=== PATIENT | male | born 1975 | race Caucasian/White ===

== ENCOUNTER 2020-06-21 13:21 | Emergency (ER) | payer MEDICAID, OTHER ==
[~2020-06-21] VITALS: Ht 175.3 cm; Wt 113.4 kg
[2020-06-21 13:23] VITALS: BP 176/101
[2020-06-21] MEDS ORDERED: KETOROLAC TROMETH 60MG/2ML VIAL IM ONE (14:45)
== END 2020-06-21 16:00 | disposition home or self-care (01) ==
LOC: ER 13:21
DX: M48.061 Spinal stenosis, lumbar region without neurogenic claudication (principal); M54.16 Radiculopathy, lumbar region
CPT/HCPCS: 72131; 96372; 99284; J1885

== ENCOUNTER 2020-12-05 14:25 | Emergency (ER) | payer MEDICAID ==
[~2020-12-05] VITALS: Ht 175.3 cm; Wt 136.1 kg
[2020-12-05 14:26] VITALS: BP 175/78
[2020-12-05 18:49] LABS: Basophils # (auto) 0.1 10 ^3/uL (0-0.2); Eosinophils # (auto) 0.1 10 ^3/uL (0-0.8); Eosinophils % (auto) 2.5 % (0.0-7.0); Hematocrit 41.9 % (41.0-53.0); Hemoglobin 14.8 g/dL (13.5-17.5); Lymphocytes # (auto) 1.8 10 ^3/uL (0.4-5.4); Lymphocytes % (auto) 32.3 % (10.0-50.0); Mean Corpuscular Hgb Conc. 35.4 g/dL (32.0-36.0); Mean Corpuscular Volume 93.2 fL (80.0-100.0); Monocytes # (auto) 0.6 10 ^3/uL (0-1.3); Neutrophils # (auto) 2.9 10 ^3/uL (1.6-8.6); Neutrophils % (auto) 53.2 % (37.0-80.0); Nucleated Red Blood Cells % 0.1 %; Red Blood Cells 4.49 10^6/uL (4.5-5.90); Red Cell Distribution Width 13.5 % (11.8-14.3); White Blood Cell 5.5 10^3/uL (4.4-10.8)
[2020-12-05 19:08] LABS: Albumin 3.4 g/dL (3.4-5.0); Calcium 8.9 mg/dL (8.5-10.1); Potassium 4.2 mmol/L (3.5-5.1)
[2020-12-05 19:11] LABS: BUN/Creatinine Ratio 14.3; Bilirubin, Total 0.5 mg/dL (0.2-1.0); CRP High Sensitivity 0.74 mg/dL (< 0.3); Total Protein 7.4 g/dL (6.4-8.2)
== END 2020-12-05 23:15 | disposition left against medical advice (07) ==
LOC: ER 14:25
DX: R22.43 Localized swelling, mass and lump, lower limb, bilateral (principal); I25.2 Old myocardial infarction; E16.2 Hypoglycemia, unspecified; F17.210 Nicotine dependence, cigarettes, uncomplicated; Z86.19 Personal history of other infectious and parasitic diseases; Z20.822 Contact with and (suspected) exposure to COVID-19; Z90.49 Acquired absence of other specified parts of digestive tract; Z86.73 Personal history of transient ischemic attack (TIA), and cerebral infarction without residual deficits
CPT/HCPCS: 36415; 71045; 80053; 82728; 85025; 85379; 86141; 87426; 93005; 93970

== ENCOUNTER 2021-12-08 22:32 | Inpatient (IN) | payer MEDICAID ==
[~2021-12-08] VITALS: Ht 378.5 cm; Wt 153.6 kg
[2021-12-08 23:57] LABS: Basophils # (auto) 0.1 10 ^3/uL (0-0.2); Basophils % (auto) 0.5 % (0.0-2.0); Eosinophils # (auto) 0.1 10 ^3/uL (0-0.8); Eosinophils % (auto) 1.2 % (0.0-7.0); Hemoglobin 16.3 g/dL (13.5-17.5); Lymphocytes # (auto) 2.8 10 ^3/uL (0.4-5.4); Lymphocytes % (auto) 27.3 % (10.0-50.0); Mean Corpuscular Hemoglobin 31.4 pg (28.0-32.0); Mean Corpuscular Hgb Conc. 33.4 g/dL (32.0-36.0); Monocytes # (auto) 0.8 10 ^3/uL (0-1.3); Monocytes % (auto) 7.8 % (0.0-12.0); Neutrophils # (auto) 6.6 10 ^3/uL (1.6-8.6); Neutrophils % (auto) 63.2 % (37.0-80.0); Nucleated Red Blood Cells % 0.3 %; Red Blood Cells 5.21 10^6/uL (4.5-5.90); Red Cell Distribution Width 13.7 % (11.8-14.3); White Blood Cell 10.4 10^3/uL (4.4-10.8)
[2021-12-09 00:21] LABS: Albumin 4.5 g/dL (3.4-5.0); Calcium 9.2 mg/dL (8.5-10.1); Potassium 4.2 mmol/L (3.5-5.1)
[2021-12-09 00:27] LABS: Bilirubin, Total 0.9 mg/dL (0.2-1.0)
[2021-12-09] MEDS ORDERED: OXYCODONE W/ ACETAMINOPHEN 5/325MG TABLET PO ONE (03:00)
[2021-12-09] MEDS ORDERED: hydrALAZINE HCL 20 MG/ML VL IV PRN (08:00)
[2021-12-09] MEDS ORDERED: ONDANSETRON HCL 4 MG/2 ML VIAL IV PRN ×2 (08:00)
[2021-12-09] MEDS ORDERED: TEMAZEPAM 15 MG CAP PO PRN (08:00)
[2021-12-09] MEDS ORDERED: MORPHINE SULFATE INJ 2 MG/ml SYRG IV PRN ×2 (08:00)
[2021-12-09] MEDS ORDERED: SODIUM CHLORIDE 0.9% 1,000 ML IV ONE (08:00)
[2021-12-09] MEDS ORDERED: ACETAMINOPHEN 325 MG TAB PO PRN (08:00)
[2021-12-09] MEDS ORDERED: DOCUSATE SOD 100 MG CAP PO PRN (08:00)
[2021-12-09] MEDS ORDERED: NITROGLYCERIN 0.4 MG SL TAB SL PRN (08:00)
[2021-12-09] MEDS ORDERED: METO25TA36 PO (10:06)
[2021-12-09] MEDS ORDERED: SPIR50TA5 PO (10:07)
[2021-12-09] MEDS ORDERED: METF-372 PO (10:07)
[2021-12-09] MEDS ORDERED: ATOR10TA52 PO (10:10)
[2021-12-09] MEDS ORDERED: CHLO100T4 PO (10:10)
[2021-12-09] MEDS ORDERED: SEMA3TAB PO (10:10)
[2021-12-09] MEDS ORDERED: APIX2.5T PO (10:10)
[2021-12-09] MEDS ORDERED: DEXTROSE (50%) 50ML SYRG IV ONE (10:30)
[2021-12-09] MEDS: ENOXAPARIN SOD 40 MG/0.4 ML SYRINGE SC SCH (10:36)
[2021-12-09] MEDS: HYDROcodone-ACET 5/325MG TAB PO PRN (10:37)
[2021-12-09] MEDS ORDERED: METOPROLOL SUCCINATE 25 MG PO SCH (10:38)
[2021-12-09] MEDS ORDERED: ATORVASTATIN CALCIUM 10 MG PO SCH (10:38)
[2021-12-09 10:50] LABS: Urine Bacteria NONE SEEN /hpf (None Seen); Urine Blood Negative /uL (Negative); Urine Hyaline Cast FEW /lpf (0 - 2); Urine Mucus FEW (None Seen); Urine Specific Gravity 1.022 (1.001-1.035); Urine WBC 4 /hpf (0 - 3)
[2021-12-09] MEDS ORDERED: ACCU-CHEK COMFORT CURVE STRIP VI ONE (11:30)
[2021-12-09] MEDS ORDERED: InsuLIN REG 1unit/0.01ml Soln (100units/ml) SC ONE (11:30)
[2021-12-09] MEDS ORDERED: METOPROLOL SUCCINATE XL 50 MG TAB PO SCH (11:45)
[2021-12-09] MEDS: ATORVASTATIN 20 MG TAB PO SCH (11:58)
[2021-12-09] MEDS: chlorproMAZINE HCL 25 MG TAB PO SCH (12:04)
[2021-12-09 18:58] LABS: Amphetamine Screen, Urine NEGATIVE (NEGATIVE); Barbiturate Scree,Urine NEGATIVE (NEGATIVE); Benzodiazephine Screen, Urine NEGATIVE (NEGATIVE); Cannabinoid Screen, Urine NEGATIVE (NEGATIVE); Cocaine Screen, Urine NEGATIVE (NEGATIVE); Opiate Scree,Urine NEGATIVE (NEGATIVE); Phencyclidine Screen, Urine NEGATIVE (NEGATIVE)
[2021-12-09 22:00] VITALS: BP 115/63
[2021-12-09] MEDS: amLODIPine BESYLATE 5 MG TAB PO SCH (22:14)
[2021-12-09] MEDS: metFORMIN HYDROCHLORIDE 500 MG TAB PO SCH (22:15)
[2021-12-10 05:00] VITALS: BP 135/78
[2021-12-10] MEDS: HYDROcodone-ACET 5/325MG TAB PO PRN ×3 (05:05→20:29)
[2021-12-10 05:30] LABS: Basophils # (auto) 0 10 ^3/uL (0-0.2); Basophils % (auto) 0.7 % (0.0-2.0); Eosinophils # (auto) 0.1 10 ^3/uL (0-0.8); Eosinophils % (auto) 2.3 % (0.0-7.0); Hematocrit 44.3 % (41.0-53.0); Hemoglobin 15.7 g/dL (13.5-17.5); Lymphocytes # (auto) 1.7 10 ^3/uL (0.4-5.4); Mean Corpuscular Hemoglobin 33.1 pg (28.0-32.0); Mean Corpuscular Hgb Conc. 35.5 g/dL (32.0-36.0); Mean Corpuscular Volume 93.3 fL (80.0-100.0); Monocytes # (auto) 0.6 10 ^3/uL (0-1.3); Monocytes % (auto) 9.2 % (0.0-12.0); Neutrophils # (auto) 3.7 10 ^3/uL (1.6-8.6); Neutrophils % (auto) 59.8 % (37.0-80.0); Nucleated Red Blood Cells % 0.3 %; Red Blood Cells 4.75 10^6/uL (4.5-5.90); Red Cell Distribution Width 13.7 % (11.8-14.3); White Blood Cell 6.2 10^3/uL (4.4-10.8)
[2021-12-10 05:50] LABS: Potassium 4.1 mmol/L (3.5-5.1)
[2021-12-10 05:57] LABS: Albumin 3.9 g/dL (3.4-5.0); BUN/Creatinine Ratio 11.6; Bilirubin, Total 0.8 mg/dL (0.2-1.0); Calcium 8.8 mg/dL (8.5-10.1); Total Protein 7.4 g/dL (6.4-8.2)
[2021-12-10 09:00] VITALS: BP 128/93
[2021-12-10] MEDS: metFORMIN HYDROCHLORIDE 500 MG TAB PO SCH ×2 (10:43→20:29)
[2021-12-10] MEDS: amLODIPine BESYLATE 5 MG TAB PO SCH (10:43)
[2021-12-10] MEDS: ATORVASTATIN 20 MG TAB PO SCH (10:45)
[2021-12-10] MEDS: METOPROLOL SUCCINATE XL 50 MG TAB PO SCH (10:45)
[2021-12-10] MEDS: LISINOPRIL 20 MG TAB PO SCH (10:46)
[2021-12-10] MEDS: ENOXAPARIN SOD 40 MG/0.4 ML SYRINGE SC SCH (10:49)
[2021-12-10] MEDS: chlorproMAZINE HCL 25 MG TAB PO SCH (10:57)
[2021-12-10 13:00] VITALS: BP 110/64
[2021-12-10 17:00] VITALS: BP 90/47
[2021-12-10 22:00] VITALS: BP 93/46
[2021-12-11 05:00] VITALS: BP 108/69
[2021-12-11] MEDS: HYDROcodone-ACET 5/325MG TAB PO PRN ×3 (06:14→14:28)
[2021-12-11 08:47] VITALS: BP 106/76
[2021-12-11] MEDS: metFORMIN HYDROCHLORIDE 500 MG TAB PO SCH (09:50)
[2021-12-11] MEDS: LISINOPRIL 20 MG TAB PO SCH (09:50)
[2021-12-11] MEDS: amLODIPine BESYLATE 5 MG TAB PO SCH (09:51)
[2021-12-11] MEDS: ENOXAPARIN SOD 40 MG/0.4 ML SYRINGE SC SCH (09:51)
[2021-12-11] MEDS: METOPROLOL SUCCINATE XL 50 MG TAB PO SCH (09:52)
[2021-12-11] MEDS: ATORVASTATIN 20 MG TAB PO SCH (09:52)
[2021-12-11] MEDS: chlorproMAZINE HCL 25 MG TAB PO SCH (09:54)
[2021-12-11] MEDS ORDERED: LISI20TA28 PO (13:21)
[2021-12-11] MEDS ORDERED: AML5T PO (13:21)
[2021-12-11] MEDS ORDERED: ATOR20TA50 PO (13:21)
[2021-12-11] MEDS ORDERED: HYDR-4902 PO (13:23)
[2021-12-11] MEDS ORDERED: BACL20TA PO (13:38)
[2021-12-11 17:16] VITALS: BP 123/87
== END 2021-12-11 17:00 | disposition home health service (06) | DRG 199 ==
LOC: EDUNIT# 22:32 → ER 22:32 → EDBD 22:32 → TELE 12-09 07:54 → TELE-CENTR 12-09 18:56
PROVIDERS: ADMIT Nurse Practitioner; ATTEND Internal Medicine
DX: I16.1 Hypertensive emergency (principal); E11.65 Type 2 diabetes mellitus with hyperglycemia; F20.9 Schizophrenia, unspecified; M54.50 Low back pain, unspecified; R51.9 Headache, unspecified; Z20.822 Contact with and (suspected) exposure to COVID-19; E66.01 Morbid (severe) obesity due to excess calories; Z98.1 Arthrodesis status; E11.9 Type 2 diabetes mellitus without complications; Z68.1 Body mass index [BMI] 19.9 or less, adult; Z79.01 Long term (current) use of anticoagulants; Z79.899 Other long term (current) drug therapy; Z86.711 Personal history of pulmonary embolism; Z86.718 Personal history of other venous thrombosis and embolism; Z88.2 Allergy status to sulfonamides; Z90.49 Acquired absence of other specified parts of digestive tract; Z71.3 Dietary counseling and surveillance; Z86.19 Personal history of other infectious and parasitic diseases
CPT/HCPCS: 36415; 70450; 71045; 71046; 72128; 80053; 80061; 80307; 81001; 83036; 83880; 84484; 85025; 85379; 93005; 93306; 96360; 96372; G0378; Q0161

== ENCOUNTER 2021-12-12 03:11 | Emergency (ER) | payer MEDICAID ==
[~2021-12-12] VITALS: Ht 185.4 cm; Wt 147.7 kg
[~2021-12-12 03:11] MED LIST: AML5T PO; APIX2.5T PO; ATOR10TA52 PO; ATOR20TA50 PO; BACL20TA PO; CHLO100T4 PO; HYDR-4902 PO; LISI20TA28 PO; METF-372 PO; METO25TA36 PO; SEMA3TAB PO; SPIR50TA5 PO
[2021-12-12 04:28] LABS: Basophils # (auto) 0.1 10 ^3/uL (0-0.2); Basophils % (auto) 0.6 % (0.0-2.0); Eosinophils # (auto) 0.1 10 ^3/uL (0-0.8); Eosinophils % (auto) 0.8 % (0.0-7.0); Hematocrit 46.8 % (41.0-53.0); Hemoglobin 15.9 g/dL (13.5-17.5); Lymphocytes # (auto) 1.3 10 ^3/uL (0.4-5.4); Lymphocytes % (auto) 17.1 % (10.0-50.0); Mean Corpuscular Hemoglobin 32.3 pg (28.0-32.0); Mean Corpuscular Hgb Conc. 33.8 g/dL (32.0-36.0); Mean Corpuscular Volume 95.5 fL (80.0-100.0); Monocytes # (auto) 0.7 10 ^3/uL (0-1.3); Monocytes % (auto) 8.4 % (0.0-12.0); Neutrophils # (auto) 5.8 10 ^3/uL (1.6-8.6); Neutrophils % (auto) 73.1 % (37.0-80.0); Nucleated Red Blood Cells % 0.1 %; Red Blood Cells 4.91 10^6/uL (4.5-5.90); Red Cell Distribution Width 13.8 % (11.8-14.3); White Blood Cell 7.9 10^3/uL (4.4-10.8)
[2021-12-12 04:57] LABS: Albumin 4.3 g/dL (3.4-5.0); Calcium 8.8 mg/dL (8.5-10.1); Potassium 4.2 mmol/L (3.5-5.1)
[2021-12-12 04:59] LABS: Total Protein 7.4 g/dL (6.4-8.2)
[2021-12-12] MEDS ORDERED: MORPHINE SULFATE INJ 2 MG/ml SYRG IV ONE (07:30)
[2021-12-12] MEDS ORDERED: ONDANSETRON HCL 4 MG/2 ML VIAL IV ONE (07:30)
[2021-12-12 12:00] VITALS: BP 105/64
== END 2021-12-12 13:38 | disposition home or self-care (01) ==
LOC: ER 03:11 → EDBD 03:11 → ER 13:38
DX: R07.89 Other chest pain (principal); I10 Essential (primary) hypertension; E11.65 Type 2 diabetes mellitus with hyperglycemia; E66.01 Morbid (severe) obesity due to excess calories; Z68.41 Body mass index [BMI] 40.0-44.9, adult; Z86.711 Personal history of pulmonary embolism; Z90.49 Acquired absence of other specified parts of digestive tract; Z87.891 Personal history of nicotine dependence; Z79.899 Other long term (current) drug therapy; Z88.2 Allergy status to sulfonamides
CPT/HCPCS: 36415; 71045; 80053; 83735; 84443; 84484; 85025; 85379; 93005; 96374; 96375; 99285; J2270; J2405

== ENCOUNTER 2022-10-22 15:54 | Emergency (ER) | payer MEDICAID ==
[~2022-10-22] VITALS: Ht 175.3 cm; Wt 154.6 kg
[~2022-10-22 15:54] MED LIST changes: -CHLO100T4 PO; +CHLO100T8 PO; -LISI20TA28 PO; +LISI20TA56 PO; -SEMA3TAB PO; +SEMA3TAB2 PO
[2022-10-22 16:31] VITALS: BP 158/88
[2022-10-22] MEDS ORDERED: IBUP-1456 PO (17:06)
[2022-10-22] MEDS ORDERED: METH4PAK PO (17:06)
== END 2022-10-22 17:22 | disposition home or self-care (01) ==
LOC: ER 15:54
DX: G56.01 Carpal tunnel syndrome, right upper limb (principal); E11.9 Type 2 diabetes mellitus without complications; I10 Essential (primary) hypertension; Z90.49 Acquired absence of other specified parts of digestive tract; Z87.891 Personal history of nicotine dependence; X58.XXXA Exposure to other specified factors, initial encounter; Y93.89 Activity, other specified; Y92.89 Other specified places as the place of occurrence of the external cause; Y99.8 Other external cause status
CPT/HCPCS: 29125; 73130

== ENCOUNTER 2023-01-04 20:36 | Emergency (ER) | payer MEDICAID ==
[~2023-01-04] VITALS: Ht 175.3 cm; Wt 149.1 kg
[~2023-01-04 20:36] MED LIST changes: +IBUP-1456 PO; +METH4PAK PO
[2023-01-04 22:35] LABS: Basophils # (auto) 0 10 ^3/uL (0-0.2); Basophils % (auto) 0.5 % (0.0-2.0); Eosinophils # (auto) 0.1 10 ^3/uL (0-0.8); Eosinophils % (auto) 1.6 % (0.0-7.0); Hematocrit 41.1 % (41.0-53.0); Hemoglobin 14.2 g/dL (13.5-17.5); Lymphocytes # (auto) 2.3 10 ^3/uL (0.4-5.4); Lymphocytes % (auto) 26.3 % (10.0-50.0); Mean Corpuscular Hemoglobin 33.4 pg (28.0-32.0); Mean Corpuscular Hgb Conc. 34.5 g/dL (32.0-36.0); Monocytes # (auto) 0.8 10 ^3/uL (0-1.3); Monocytes % (auto) 9.8 % (0.0-12.0); Neutrophils # (auto) 5.4 10 ^3/uL (1.6-8.6); Neutrophils % (auto) 61.8 % (37.0-80.0); Nucleated Red Blood Cells % 0.1 %; Red Blood Cells 4.23 10^6/uL (4.5-5.90); Red Cell Distribution Width 14.5 % (11.8-14.3); White Blood Cell 8.7 10^3/uL (4.4-10.8)
[2023-01-04 22:42] LABS: Alanine Aminotransferase 72 U/L (7-40); Albumin 4.8 g/dL (3.2-4.8); Alkaline Phosphatase 71 U/L (46-116); Anion Gap 5.2 (5-15); Aspartate Aminotransferase 36 U/L (13-40); BUN/Creatinine Ratio 10.3 (10.0-20.0); Bilirubin, Total 0.9 mg/dL (0.2-1.0); Blood Urea Nitrogen 14 mg/dL (9-23); Calcium 9.6 mg/dL (8.7-10.4); Carbon Dioxide 27.8 mmol/L (20-30); Chloride 105 mmol/L (98-107); Glucose 132 mg/dL (74-106); Potassium 5.1 mmol/L (3.5-5.1); Sodium 138 mmol/L (136-145); Total Protein 7.3 g/dL (5.7-8.2)
[2023-01-04] MEDS ORDERED: KETOROLAC TROMETH 30 MG/ML 1ML VIAL IV ONE (23:00)
[2023-01-04] MEDS ORDERED: ceFAZolin 2 GM/D5W100ml 100 ML IV ONE (23:00)
[2023-01-04] MEDS ORDERED: CLIN300C70 PO (23:40)
[2023-01-05 01:35] VITALS: BP 135/79; PULSE 78; RESP 18; TEMP 98; O2SAT 97
[2023-01-05] MEDS ORDERED: cefTRIAXone SOD 1,000 MG VL IM ONE (01:45)
== END 2023-01-05 06:31 | disposition home or self-care (01) ==
LOC: ER 20:36
DX: L03.113 Cellulitis of right upper limb (principal); I10 Essential (primary) hypertension; E11.9 Type 2 diabetes mellitus without complications; I26.99 Other pulmonary embolism without acute cor pulmonale; Z90.49 Acquired absence of other specified parts of digestive tract; Z87.891 Personal history of nicotine dependence; Z79.1 Long term (current) use of non-steroidal anti-inflammatories (NSAID); Z79.899 Other long term (current) drug therapy
CPT/HCPCS: 36415; 73080; 80053; 85025; 93971; 96372; 96374

== ENCOUNTER 2023-06-01 23:40 | Emergency (ER) | payer MEDICAID ==
[~2023-06-01] VITALS: Ht 175.3 cm; Wt 162.7 kg
[~2023-06-01 23:40] MED LIST changes: +CLIN300C70 PO
[2023-06-02 00:50] LABS: Basophils # (auto) 0 10 ^3/uL (0-0.2); Basophils % (auto) 0.7 % (0.0-2.0); Eosinophils # (auto) 0.1 10 ^3/uL (0-0.8); Eosinophils % (auto) 1.2 % (0.0-7.0); Hematocrit 42.2 % (41.0-53.0); Hemoglobin 14.2 g/dL (13.5-17.5); Lymphocytes # (auto) 1.4 10 ^3/uL (0.4-5.4); Lymphocytes % (auto) 24.2 % (10.0-50.0); Mean Corpuscular Hgb Conc. 33.7 g/dL (32.0-36.0); Mean Corpuscular Volume 97.8 fL (80.0-100.0); Monocytes # (auto) 0.7 10 ^3/uL (0-1.3); Monocytes % (auto) 11.7 % (0.0-12.0); Neutrophils # (auto) 3.6 10 ^3/uL (1.6-8.6); Neutrophils % (auto) 62.2 % (37.0-80.0); Red Blood Cells 4.32 10^6/uL (4.5-5.90); Red Cell Distribution Width 13.5 % (11.8-14.3); White Blood Cell 5.8 10^3/uL (4.4-10.8)
[2023-06-02 01:01] LABS: Alanine Aminotransferase 144 U/L (7-40); Albumin 4.2 g/dL (3.2-4.8); Alkaline Phosphatase 82 U/L (46-116); Anion Gap 6 (5-15); Aspartate Aminotransferase 143 U/L (13-40); BUN/Creatinine Ratio 11.9 (10.0-20.0); Blood Urea Nitrogen 15 mg/dL (9-23); Calcium 9.4 mg/dL (8.7-10.4); Carbon Dioxide 26 mmol/L (20-30); Chloride 108 mmol/L (98-107); Glucose 156 mg/dL (74-106); Potassium 3.9 mmol/L (3.5-5.1); Sodium 140 mmol/L (136-145)
[2023-06-02 01:02] LABS: Bilirubin, Total 0.8 mg/dL (0.2-1.0); Total Protein 6.6 g/dL (5.7-8.2)
[2023-06-02] MEDS ORDERED: ALBUAER3 IN (03:23)
[2023-06-02] MEDS ORDERED: DOXY-286 PO (03:23)
[2023-06-02] MEDS ORDERED: DEX4T PO (03:23)
[2023-06-02 04:44] VITALS: BP 121/55; PULSE 81; RESP 20; TEMP 97.1; O2SAT 97
[2023-06-02] MEDS ORDERED: IOHEXOL 350 MG/ML 100ML IJ ONE (05:28)
== END 2023-06-02 03:24 | disposition home or self-care (01) ==
LOC: ER 23:40
DX: J45.909 Unspecified asthma, uncomplicated (principal); R07.89 Other chest pain; I10 Essential (primary) hypertension; E11.9 Type 2 diabetes mellitus without complications; Z90.49 Acquired absence of other specified parts of digestive tract; Z87.891 Personal history of nicotine dependence
CPT/HCPCS: 36415; 71045; 71275; 80053; 83605; 83880; 84484; 85025; 85379; 87040; 99285; Q9967

== ENCOUNTER 2024-11-12 07:46 | Inpatient (IN) | payer MEDICAID ==
[~2024-11-12] VITALS: Ht 175.3 cm; Wt 147.5 kg
[~2024-11-12 07:46] MED LIST changes: +ALBUAER3 IN; +CHLO100T12 PO; -CHLO100T8 PO; +CLIN1CAP70 PO; -CLIN300C70 PO; +DEX4T PO; +DOXY-286 PO
--- NOTE | 2024-11-12 08:15 | ED.PDOC ---
History of Present Illness HPI Comments 49-year-old male presents to the ER with a prior medical history of asthma, diabetes, hypertension, PEx4, 8 years ago(currently on blood thinners), high lipids, stage III cirrhosis: Surgical history of cholecystectomy, laminectomy, right knee surgery and the chief complaint of lower extremity. Patient reports on having swelling on the top right foot for 2 weeks with the pain worsening felt day and being constant. Patient states on having no trauma or fall on the extremity. Denies chills, fever, N/V/D, SOB, CP. No other associated symptoms, modifiers, recent injuries or sick contacts present at this time. Chief Complaint: Lower Extremity Time Seen by MD: 08:05 Primary Care Provider: FLAKITO PEREIRA Reviewed Notes: Nurses Notes, Medications, Allergies Allergies: Uncoded Allergies: SULFA (Allergy, Unknown, 06/21/20) Home Meds Active Scripts Albuterol Sulfate (VENTOLIN MDI) 90 Mcg Ih, 180 MCG IN Q6HP PRN for 20 Days, #1 MCG Prov:BETSEY JESUS S DO 06/02/23 Doxycycline Hyclate (DOXYCYCLINE HYCLATE) 100 Mg Tab, 1 TAB PO BID for 10 Days, #20 TAB Prov:BETSEY JESUS DO 06/02/23 Dexamethasone (Decadron) 4 Mg Tb, 8 MG PO DAILY for 9 Days, #18 TAB Prov:BETSEY JESUS S DO 06/02/23 Clindamycin Hcl (Clindamycin Hcl) 300 Mg Cap, 1 CAP PO TID for 10 Days, #30 CAP Prov:CORY ÁLVAREZ 01/04/23 Methylprednisolone (Medrol Dosepak) 4 Mg Dario, 4 MG PO UD, #21 TAB UAD Prov:VON MITCHELL 10/22/22 Ibuprofen (Ibuprofen) 800 Mg Tab, 1 TAB PO TID, #30 TAB Prov:VON MITCHELL 10/22/22 Baclofen (Baclofen) 20 Mg Tab, 1 TAB PO TID for 5 Days, #15 TAB 3 Refills Prov:GLORIA PALMA NP 12/11/21 Hydrocodone-Acetaminophen (Hydrocodone Bitartrate/AC 5-325 mg) 1 Tab Tab, 1 TAB PO Q6HP PRN for 7 Days, #28 TAB Prov:GLORIA PALMA NP 12/11/21 Lisinopril (Lisinopril) 20 Mg Tab, 20 MG PO DAILY for 30 Days, #30 TAB Prov:GLORIA PALMA [employer]ANDEM [employer]PER[employer] 12/11/21 Atorvastatin Calcium (ATORVASTATIN CALCIUM) 20 Mg Tab, 10 MG PO DAILY for 30 Days, #15 TAB Prov:GLORIA PALMA TANDEM M[employer] OPERATOR 12/11/21 Amlodipine Besylate (NORVASC TABLET) 5 Mg Tb, 5 MG PO DAILY for 30 Days, #30 TAB Prov:GLORIA PALMA TANDEM M[employer] OPERATOR 12/11/21 Reported Medications Chlorpromazine Hcl (Chlorpromazine Hcl) 100 Mg Tab, 100 MG PO, TAB 12/09/21 Apixaban Base (ELIQUIS) 2.5 Mg Tab, 2.5 MG PO BID, TAB 12/09/21 Semaglutide (Rybelsus) 3 Mg Tab, 3 MG PO, TAB 12/09/21 Atorvastatin Calcium (ATORVASTATIN CALCIUM) 10 Mg Tab, 1 TAB PO DAILY, #30 TAB 5 Refills 12/09/21 Metformin Hydrochloride (Metformin Hcl) 1,000 Mg Tab, 1 TAB PO BID, #180 TAB 3 Refills 12/09/21 Spironolactone (Spironolactone) 50 Mg Tab, 1 TAB PO DAILY, #30 TAB 5 Refills 12/09/21 Metoprolol Succinate (Toprol Xl) 25 Mg Tab, 1 TAB PO DAILY, #30 TAB 5 Refills 12/09/21 Information Source: Patient Mode of Arrival: Ambulatory Severity: Moderate Timing: Weeks Duration: Since onset Prehospital treatment: None Past Medical History PAST MEDICAL HISTORY: Asthma, DM, High Lipids, HTN, Liver (Stage III liver cirrhosis), PE (X4, 8 years ago and currently on blood thinners) Surgical History: Cholecystectomy Surgical History (Other): Laminectomy, right knee surgery Family History Family History: Reviewed,noncontributory to illness, Unknown Social History Smoker: Non-Smoker, Quit Greater Than 1 Year Alcohol: Denies ETOH Use, Sober Drugs: Denies Drug Use Lives In: Home Constitutional: denies: chills, diaphoresis, fatigue, fever, malaise, sweats, weakness, others EENTM: denies: blurred vision, double vision, ear bleeding, ear discharge, ear drainage, ear pain, ear ringing, eye pain, eye redness, hearing loss, mouth pain, mouth swelling, nasal discharge, nose bleeding, nose congestion, nose pain, photophobia, tearing, throat pain, throat swelling, voice changes, others Respiratory: denies: cough, hemoptysis, orthopnea, SOB at rest, shortness of breath, SOB with excertion, stridor, wheezing, others Cardiovascular: reports: edema (3+ pitting edema, mild redness, hyperpigmentation, asymmetrically larger than the left); denies: chest pain, dizzy spells, diaphoresis, Dyspnea on exertion, irregular heart beat, left arm pain, lightheadedness, palpitations, PND, syncope, others Gastrointestinal: denies: abdomen distended, abdominal pain, blood streaked bowels, constipated, diarrhea, dysphagia, difficulty swallowing, hematemesis, melena, nausea, poor appetite, poor fluid intake, rectal bleeding, rectal pain, vomiting, others Genitourinary: denies: burning, dysuria, flank pain, frequency, hematuria, incontinence, penile discharge, penile sore, pain, testicle pain, testicle swelling, urgency, others Neurological: denies: dizziness, fainting, headache, left sided numbness, left sided weakness, numbness, paresthesia, pre-existing deficit, right sided numbness, right sided weakness, seizure, speech problems, tingling, tremors, weakness, others Musculoskeletal: denies: back pain, gout, joint pain, joint swelling, muscle pain, muscle stiffness, neck pain, others Integumetry: denies: bruises, change in color, change in hair/nails, dryness, laceration, lesions, lumps, rash, wounds, others Allergic/Immunocompromised: denies: Difficulty Healing, Frequent Infections, Hives, Itching, others Hematologic/Lymphatic: denies: anemia, blood clots, easy bleeding, easy bruising, swollen glands, others Endocrine: denies: excessive hunger, excessive sweating, excessive thirst, excessive urination, flushing, intolerance to cold, intolerance to heat, unexplained weight gain, unexplained weight loss, others Psychiatric: denies: anxiety, bipolar disorder, depression, hopeless, panic disorder, schizophrenia, sleepless, suicidal, others All Other Systems: Reviewed and Negative Physical Exam General Appearance: No Apparent Distress, Normal HEENT: Normal ENT Inspection, Pharynx Normal, TMs Normal Neck: Full Range of Motion, Non-Tender, Normal, Normal Inspection Respiratory: Chest Non-Tender, Lungs Clear, No Accessory Muscle Use, No Respiratory Distress, Normal Breath Sounds Cardiovascular: No Edema, No JVD, No Murmur, No Gallop, Normal Peripheral Pulses, Regular Rate/Rhythm Breast Exam: Deferred Gastrointestinal: No Organomegaly, Non Tender, No Pulsatile Mass, Normal Bowel Sounds, Soft Genitalia: Deferred Pelvic: Deferred Rectal: Deferred Extremities: Leg edema (3+ pitting edema, mild redness, hyperpigmentation, asymmetrically larger than the left), Normal capillary refill, Normal inspection, Normal range of motion, Non-tender, No pedal edema Musculoskeletal : Apperance: Normal Neurologic: Alert, lead oxide mill tender II-XII nml as Tested, No Motor Deficits, Normal Affect, Normal Mood, No Sensory Deficits Cerebellar Function: Normal Reflexes: Normal Skin: Dry, Normal Color, Warm Lymphatic: No Adenopathy Was a procedure done? Was a procedure done?: No Differential Dx Considerations may include: DVT, post thrombotic syndrome, sprain, strain, venous insufficiency, cellulitis X-Ray, Labs, Meds, VS Vital Signs Date Time Temp Pulse Resp B/P (MAP) Pulse Ox O2 Delivery O2 Flow Rate FiO2 11/12/24 10:06 86 20 94 Room Air* 0 21 11/12/24 10:03 98.3 86 20 127/75 (92) 94 98.3 11/12/24 08:27 88 17 97 Room Air 11/12/24 08:27 98.7 88 17 129/86 (100) 97 98.7 11/12/24 07:54 97.5 105 16 159/74 (102) 98 97.5 11/12/24 07:54 97.5 105 16 159/74 (102) 98 97.5 Lab Test 11/12/24 08:22 Range/Units White Blood Count 3.9 L 4.4-10.8 10^3/uL Red Blood Count 4.00 L 4.5-5.90 10^6/uL Hemoglobin 12.0 L 13.5-17.5 g/dL Hematocrit 35.2 L 41.0-53.0 % Mean Corpuscular Volume 87.9 80.0-100.0 fL Mean Corpuscular Hemoglobin 30.1 28.0-32.0 pg Mean Corpuscular Hemoglobin Concent 34.3 32.0-36.0 g/dL Red Cell Distribution Width 16.2 H 11.8-14.3 % Platelet Count 140 140-450 10^3/uL Mean Platelet Volume 8.2 6.9-10.8 fL Neutrophils (%) (Auto) 60.0 37.0-80.0 % Lymphocytes (%) (Auto) 26.4 10.0-50.0 % Monocytes (%) (Auto) 10.2 0.0-12.0 % Eosinophils (%) (Auto) 2.4 0.0-7.0 % Basophils (%) (Auto) 1.0 0.0-2.0 % Neutrophils # (Auto) 2.4 1.6-8.6 10 ^3/uL Lymphocytes # (Auto) 1.0 0.4-5.4 10 ^3/uL Monocytes # (Auto) 0.4 0-1.3 10 ^3/uL Eosinophils # (Auto) 0.1 0-0.8 10 ^3/uL Basophils # (Auto) 0 0-0.2 10 ^3/uL Nucleated Red Blood Cells 0.1 % Sodium Level 138 136-145 mmol/L Potassium Level 4.4 3.5-5.1 mmol/L Chloride Level 104 98-107 mmol/L Carbon Dioxide Level 25 20-31 mmol/L Anion Gap 9 5-15 Blood Urea Nitrogen 15 9-23 mg/dL Creatinine 1.22 0.700-1.30 mg/dL Glomerular Filtration Rate Calc 72 >90 mL/min BUN/Creatinine Ratio 12.3 10.0-20.0 Serum Glucose 221 H 74-106 mg/dL Calcium Level 9.7 8.7-10.4 mg/dL Time of 1ST Reevaluation: 08:35 Reevaluation 1ST: Unchanged Time of 2ND Reevaluation: 10:26 Reevaluation 2ND: Unchanged Patient Education/Counseling: Diagnosis, Treatment, Prognosis, Need For Follow Up Family Education/Counseling: No Family Present Comments pt has a recurrentl DVT due to being off eliquis. i consulted IR, Dr Pelaez, and will admit the pt while starting him on heparin SEPSIS Sepsis Screen Date sepsis recognized/suspect: Nov 12, 2024 Time Sepsis recognized/suspect: 0746 Recent Procedure: No On Antibiotic Therapy: No Respiratory Rate >20: No Heart Rate >90: No Temp<36 C (96.8 F) or >38.3 C: No SBP <90 or MAP <65 mmHG: No New Acute Mental Status Change: No Is the patient on CPAP, BIPAP,: No Physician Orders Rt Lower Dvt (11/12/24 08:08) * Radiologist Consult (11/12/24 09:23) Platelet Monitoring (11/12/24 10:24) Vte Protocol Initiated (11/12/24 10:24) Heparin Per Standardized Proce (11/12/24 10:24) Discontinue All Im Injections (11/12/24 10:24) Heparin Sodium (Porcine) (11/12/24 10:30) Heparin Drip/D5w 100units/Ml (11/12/24 10:30) Vital Signs Date Time Temp Pulse Resp B/P (MAP) Pulse Ox O2 Delivery O2 Flow Rate FiO2 11/12/24 10:06 86 20 94 Room Air* 0 21 11/12/24 10:03 98.3 86 20 127/75 (92) 94 98.3 11/12/24 08:27 88 17 97 Room Air 11/12/24 08:27 98.7 88 17 129/86 (100) 97 98.7 11/12/24 07:54 97.5 105 16 159/74 (102) 98 97.5 11/12/24 07:54 97.5 105 16 159/74 (102) 98 97.5 Laboratory Tests Test 11/12/24 08:22 White Blood Count 3.9 10^3/uL (4.4-10.8) L Departure 1 Departure Time of Disposition: 10:25 Impression: Primary Impression: DVT (deep vein thrombosis) in Disposition: 09 ADMITTED INPATIENT Admit to: Med Surg Condition: Serious Discharged With: Self Critical Care Note Critical Care Time?: No Stability Stability form required: No I personally scribed for JIMMY WERNER MD ([email or web address]) on 11/12/24 at 08:15. Electronically submitted by Khurram Almanzar ([email or web address]). JIMMY WERNER MD Nov 12, 2024 08:15
[2024-11-12 08:49] LABS: Hematocrit 35.2 % (41.0-53.0); Hemoglobin 12.0 g/dL (13.5-17.5); Mean Corpuscular Hemoglobin 30.1 pg (28.0-32.0); Mean Corpuscular Volume 87.9 fL (80.0-100.0); Nucleated Red Blood Cells % 0.1 %
[2024-11-12 08:51] LABS: Chloride 104 mmol/L (98-107); Potassium 4.4 mmol/L (3.5-5.1); Sodium 138 mmol/L (136-145)
[2024-11-12 08:52] LABS: Anion Gap 9 (5-15); Calcium 9.7 mg/dL (8.7-10.4); Carbon Dioxide 25 mmol/L (20-31)
[2024-11-12 08:57] LABS: BUN/Creatinine Ratio 12.3 (10.0-20.0); Blood Urea Nitrogen 15 mg/dL (9-23)
[2024-11-12 08:58] LABS: Glucose 221 mg/dL (74-106)
--- NOTE | 2024-11-12 09:08 | DVH ---
Clinical History: pain; r/o dvt Comparison: US RT UPPER DVT on DOS: 01/04/23 Technique: Duplex Doppler evaluation of the deep venous system of the right lower extremity from the common femo ral vein to the popliteal vein including color Doppler and spectral/pulsed waveform analysis was perf ormed. Findings: The common femoral vein demonstrates appropriate compressibility and waveform variability. There is compressibility/patency of the great saphenous vein at the proximal thigh. The femoral vein demonstrates appropriate compressibility and waveform variability. The deep femoral vein demonstrates appropriate compressibility and waveform variability. The popliteal vein demonstrates incomplete compressibility. Right posterior tibial vein is not well visualized due to subcutaneous edema. Impression: Nonocclusive thrombus in the right popliteal vein. If clinical concern/symptoms persist or worsen, short-interval follow-up study is suggested. Critical Result: DVT Findings discussed with JIMMY WERNER at 11/12/2024 09:05 AM, and acknowledged receipt and understandin g of the findings.
[2024-11-12 10:06] VITALS: PULSE 86; RESP 20; O2SAT 94
[2024-11-12] MEDS: HEPARIN SODIUM (PORCINE) 5000 UNITS/ML 1ML VIAL IV ONE (10:34)
[2024-11-12] MEDS ORDERED: DEXTROSE (50%) 50ML SYRG IV PRN (10:45)
[2024-11-12] MEDS ORDERED: NITROGLYCERIN 0.4 MG SL TAB SL PRN (10:45)
[2024-11-12] MEDS ORDERED: DOCUSATE SOD 100 MG CAP PO PRN (10:45)
[2024-11-12] MEDS ORDERED: ALBUTEROL SULF 2.5 MG/0.5ML(0.5%) NEB SOLN NEB PRN (10:45)
[2024-11-12] MEDS: HYDROcodone-ACET 5/325MG TAB PO ONE (10:45)
[2024-11-12] MEDS ORDERED: MORPHINE SULFATE INJ 2 MG/ml SYRG IV PRN (10:45)
[2024-11-12 11:00] VITALS: BP 127/75; PULSE 86; RESP 20; TEMP 97.5; O2SAT 94
--- NOTE | 2024-11-12 11:06 | DVHHP2 ---
History of Present Illness Reason for Visit: Right lower extremity DVT History of Present Illness The patient is a 49-year-old male morbidly obese with multiple past medical history including asthma, PE, DM, and hypertension who presented to [facility] ED with complaint of lower extremity swelling/pain. Patient re ports on having swelling on the top right foot for 2 weeks with pain, constant, nonradiating, worsening today that prompted this visit. Patient was seen and evaluated in the ED, laboratory data shows WBC 3.9, platelets 140, sodium 139, potassium 4.4, BUN 15, creatinine 1.22, glucose 221, calcium 9.7, blood pressure 127/75, heart rate 86, temperature 98.3 F, O2 saturation 97% on room air. Extremity venous studies revealing nonocclusive thrombus in the right popliteal vein. Patient was started on heparin drip, please see medication orders section in the computer. On my assessment, patient denied chest pain, no headache, no dizziness, no diaphoresis, no shortness of breath, no nausea, no vomiting, no fever, no chills. Patient was admitted for further evaluation and medical management. Past Medical History Asthma, DM, High Lipids, HTN, Liver (Stage III liver cirrhosis), PE (X4, 8 years ago and currently on blood thinners) Past Surgical History Cholecystectomy, Laminectomy, right knee surgery Family History Reviewed, noncontributory to the management of this case. Past Social History Patient lives at home, quit smoking greater than 1 year, denies alcohol or illicit drugs abuse. Review of Systems Constitutional: No: Fever, Chills, Sweats, Weakness, Malaise, Other Eyes: No: Pain, Vision change, Conjunctivae inflammation, Eyelid inflammation, Other, Redness ENT: No: Ear pain, Ear discharge, Nose pain, Nose discharge, Nose congestion, Mouth pain, Mouth swelling, Throat pain, Throat swelling, Other Respiratory: No: Cough, Dry, Shortness of breath, SOB with excertion, Wheezing, Hemoptysis, Pleuritic Pain, Sputum, Wheezing, Other Cardiovascular: No: Chest Pain, Palpitations, Orthopnea, Paroxysmal Noc. Dyspnea, Edema, Lt Headedness, Other Gastrointestinal: No: Nausea, Vomiting, Abdominal Pain, Diarrhea, Constipation, Melena, Hematochezia, Other Genitourinary: No Dysuria, No Frequency, No Incontinence, No Hematuria, No Retention, No Other Musculoskeletal: other (3+ pitting edema, asymmetrically larger than the left.); No: neck pain, shoulder pain, arm pain, back pain, hand pain, leg pain, foot pain Skin: Other (Mild redness, hyperpigmentation.); No: Rash, Lesions, Jaundice, Bruising Neurological: No: Weakness, Numbness, Incoordination, Change in speech, Confusion, Seizures, Other Allergies: Uncoded Allergies: SULFA (Allergy, Unknown, 06/21/20) Medications Current Medications Medications Dose Ordered Sig/Nahun Route Start Time Stop Time Status Last Admin Dose Admin Heparin Sodium/ Dextrose 250 ml @ 26.712 mls/ hr [id number] IV 11/12/24 10:30 UNV Exam Vital Signs Vital Signs Date Time Temp Pulse Resp B/P (MAP) Pulse Ox O2 Delivery O2 Flow Rate FiO2 11/12/24 10:06 86 20 94 Room Air* 0 21 11/12/24 10:03 98.3 127/75 (92) 98.3 General Appearance: Alert, Oriented X3, Cooperative, No acute distress HEENT: Atraumatic, PERRLA, EOMI, Mucous membr. moist/pink Respiratory: Normal air movement Cardiovascular: Regular rate, Normal S1, Normal S2, No murmurs Abdominal: Normal bowel sounds, Soft, No tenderness, No hepatospenomegaly, No masses Extremities: No clubbing, No cyanosis, No edema, Normal pulses, Other (Right lower extremity swelling/tenderness) Skin: No rashes, No significant lesion Neuro: Normal gait, Normal speech, Strength at 5/5 X4 ext, Normal tone, Sensat ion intact, Cranial nerves 3-12 NL, Reflexes 2+ Psych/Mental Status: Mental status NL, Mood NL Labs/Xrays Labs Test 11/12/24 08:22 Range/Units White Blood Count 3.9 L 4.4-10.8 10^3/uL Red Blood Count 4.00 L 4.5-5.90 10^6/uL Hemoglobin 12.0 L 13.5-17.5 g/dL Hematocrit 35.2 L 41.0-53.0 % Mean Corpuscular Volume 87.9 80.0-100.0 fL Mean Corpuscular Hemoglobin 30.1 28.0-32.0 pg Mean Corpuscular Hemoglobin Concent 34.3 32.0-36.0 g/dL Red Cell Distribution Width 16.2 H 11.8-14.3 % Platelet Count 140 140-450 10^3/uL Mean Platelet Volume 8.2 6.9-10.8 fL Neutrophils (%) (Auto) 60.0 37.0-80.0 % Lymphocytes (%) (Auto) 26.4 10.0-50.0 % Monocytes (%) (Auto) 10.2 0.0-12.0 % Eosinophils (%) (Auto) 2.4 0.0-7.0 % Basophils (%) (Auto) 1.0 0.0-2.0 % Neutrophils # (Auto) 2.4 1.6-8.6 10 ^3/uL Lymphocytes # (Auto) 1.0 0.4-5.4 10 ^3/uL Monocytes # (Auto) 0.4 0-1.3 10 ^3/uL Eosinophils # (Auto) 0.1 0-0.8 10 ^3/uL Basophils # (Auto) 0 0-0.2 10 ^3/uL Nucleated Red Blood Cells 0.1 % Sodium Level 138 136-145 mmol/L Potassium Level 4.4 3.5-5.1 mmol/L Chloride Level 104 98-107 mmol/L Carbon Dioxide Level 25 20-31 mmol/L Anion Gap 9 5-15 Blood Urea Nitrogen 15 9-23 mg/dL Creatinine 1.22 0.700-1.30 mg/dL Glomerular Filtration Rate Calc 72 >90 mL/min BUN/Creatinine Ratio 12.3 10.0-20.0 Serum Glucose 221 H 74-106 mg/dL Calcium Level 9.7 8.7-10.4 mg/dL PATIENT: ASHELY WANG ACCT: [id number] UNIT: [id number] : 1975 LOC: ER ROOM / BED: / AGE / SEX: 49 / M ADM STATUS: REG ER SERVICE 0808 ORDERING PHYSICIAN: JIMMY WERNER MD PROCEDURE(s): RLDVT - RT Lower DVT REASON: r/o dvt ORDER NUMBER(s): [id number], ACCESSION NUMBER(s): [id number] Clinical History: pain; r/o dvt Comparison: US RT UPPER DVT on DOS: 01/04/23 Technique: Duplex Doppler evaluation of the deep venous system of the right lower extremity from the common femoral vein to the popliteal vein including color Doppler and spectral/pulsed waveform analysis was performed. Findings: The common femoral vein demonstrates appropriate compressibility and waveform variability. There is compressibility/patency of the great saphenous vein at the proximal thigh. The femoral vein demonstrates appropriate compressibility and waveform variability. The deep femoral vein demonstrates appropriate compressibility and waveform variability. The popliteal vein demonstrates incomplete compressibility. Right posterior tibial vein is not well visualized due to subcutaneous edema. Impression: Nonocclusive thrombus in the right popliteal vein. If clinical concern/symptoms persist or worsen, short-interval follow-up study is suggested. Critical Result: DVT SEPSIS Sepsis Screen Date sepsis recognized/suspect: Nov 12, 2024 Time Sepsis recognized/suspect: 1009 Recent Procedure: No On Antibiotic Therapy: No Respiratory Rate >20: No Heart Rate >90: No Temp<36 C (96.8 F) or >38.3 C: No SBP <90 or MAP <65 mmHG: No New Acute Mental Status Change: No Is the patient on CPAP, BIPAP,: No Physician Orders Rt Lower Dvt (11/12/24 08:08) * Radiologist Consult (11/12/24 09:23) Platelet Monitoring (11/12/24 10:24) Vte Protocol Initiated (11/12/24 10:24) Heparin Per Standardized Proce (11/12/24 10:24) Discontinue All Im Injections (11/12/24 10:24) Heparin Drip/D5w 100units/Ml (11/12/24 10:30) Amlodipine Tablet (Norvasc Tablet) (11/13/24 10:00) Atorvastatin (Lipitor) (11/12/24 22:00) Clonidine Hcl Tablet (Catapres Tablet) (11/12/24 10:45) Consistent Carb(Ccho)Diabetes (11/12/24 Lunch) Albuterol Medneb (Ventolin Medneb) (11/12/24 10:45) Glucose Blood (Accu-Chek Comfort Curve T (11/12/24 12:00) Moderate Insulin Ss (11/12/24 12:00) Dextrose 50% Syringe (11/12/24 10:45) Admit (11/12/24 10:33) Allergies (11/12/24 10:33) Code Status (11/12/24 10:33) 0.9% Ns 1000 Ml (11/12/24 10:45) Oxygen Per Hour (11/12/24 10:33) Hydrocodone-Acet 5/325mg Tab ([place] 5/32 (11/12/24 10:45) Ondansetron Hcl (Zofran) (11/12/24 10:45) Docusate Sodium Capsule (Colace Capsule) (11/12/24 10:45) Complete Blood Count (11/13/24 04:00) Comprehensive Metabolic Panel (11/13/24 04:00) Condition: Serious (11/12/24 10:33) Vital Signs Date Time Temp Pulse Resp B/P (MAP) Pulse Ox O2 Delivery O2 Flow Rate FiO2 11/12/24 10:06 86 20 94 Room Air* 0 21 11/12/24 10:03 98.3 86 20 127/75 (92) 94 98.3 11/12/24 08:27 88 17 97 Room Air 11/12/24 08:27 98.7 88 17 129/86 (100) 97 98.7 11/12/24 07:54 97.5 105 16 159/74 (102) 98 97.5 11/12/24 07:54 97.5 105 16 159/74 (102) 98 97.5 Laboratory Tests Test 11/12/24 08:22 White Blood Count 3.9 10^3/uL (4.4-10.8) L Medications Medications Dose Ordered Sig/Nahun Route Start Time Stop Time Status Last Admin Dose Admin Acetaminophen/ Hydrocodone Bitart 1 tab ONCE ONCE PO 11/12/24 10:45 11/12/24 10:46 DC 11/12/24 10:45 1 TAB Heparin Sodium (Porcine) 5,000 units ONCE ONCE IV 11/12/24 10:30 11/12/24 10:31 DC 11/12/24 10:34 5,000 UNITS Assessment/Plan Assessment/Plan DVT (deep venous thrombosis) Localized swelling of both lower legs Diabetes mellitus with hyperglycemia Plan 1. Admit to telemetry unit 2. Breathing treatment 3. Pain control management 4. Management of fluids and electrolytes 5. Consultation for hospitalist 6. Diagnostic tests extremity venous study 7. DVT prophylaxis-on heparin drip 8. Repeat labs CBC, CMP in a.m. 9. Continue with current medical management 10. Treatment plan discussed with patient and RN. Patient verbalized understanding. Plan discussed with: Patient, Other (RN) My Orders Orders - EM CERVANTES DNP Procedure Category Date Status Time Amlodipine Tablet PHA 11/13/24 Verified (Norvasc Tablet) 10:00 Atorvastatin (Lipitor) PHA 11/12/24 Verified 22:00 Clonidine Hcl Tablet PHA 11/12/24 Verified (Catapres Tablet) 10:45 Consistent DIET 11/12/24 Verified Carb(Ccho)Diabetes Lunch Albuterol Medneb PHA 11/12/24 Verified (Ventolin Medneb) 10:45 Glucose Blood PHA 11/12/24 Verified (Accu-Chek Comfort 12:00 Moderate Insulin Ss PHA 11/12/24 Verified 12:00 Dextrose 50% Syringe PHA 11/12/24 Verified 10:45 Admit ADMIT 11/12/24 Verified 10:33 Allergies DARIUSZ 11/12/24 Verified 10:33 Code Status CODE 11/12/24 Verified 10:33 0.9% Ns 1000 Ml PHA 11/12/24 Verified 10:45 Oxygen Per Hour RT 11/12/24 Verified 10:33 Hydrocodone-Acet PHA 11/12/24 Verified 5/325mg Tab ([place] 10:45 Ondansetron Hcl PHA 11/12/24 Verified (Zofran) 10:45 Docusate Sodium PHA 11/12/24 Verified Capsule (Colace 10:45 Complete Blood Count LAB 11/13/24 Verified 04:00 Comprehensive LAB 11/13/24 Verified Metabolic Panel 04:00 Condition: Serious DARIUSZ 11/12/24 Verified 10:33 Problem List: (1) DVT (deep venous thrombosis) (2) Localized swelling of both lower legs (3) Diabetes mellitus with hyperglycemia Date of Service: Nov 12, 2024 Billing Provider: EM CERVANTES DNP Common Visit Codes: [id number] INP/OBS CARE (HIGH) EM CERVANTES DNP Nov 12, 2024 11:06
[2024-11-12] MEDS: SODIUM CHLORIDE 0.9% 1,000 ML IV SCH (11:21)
--- NOTE | 2024-11-12 11:29 | CONS ---
Pharmacy Clinical Information: HEPARIN DRIP, VTE PROTOCOL ORDERED FOR PATIENT WEIGHT 148.4KG BY STANDING SCALE BASELINE COAGS NOT ORDERED; 5000 UNITS HEPARIN BOLUS ALREADY GIVEN INITIATE DRIP AT RATE 2000 UNITS/HR APTT DRAW SCHEDULED FOR 1730 PER RX PROTOCOL ROSSI WORRELL PHARMACIST Nov 12, 2024 11:29
[2024-11-12] MEDS: HEPARIN DRIP/D5W 100UNITS/ML 250 ML IV SCH (12:07)
[2024-11-12] MEDS: InsuLIN REG 1unit/0.01ml Soln (100units/ml) SC SCH (12:14)
[2024-11-12] MEDS: ACCU-CHEK COMFORT CURVE STRIP VI SCH (12:14)
[2024-11-12 12:22] LABS: INR 1.08 (0.9-1.15); Partial Thromboplastin Time 26.0 SEC (24.5-34.5); Prothrombin Time 11.4 sec (9.3-11.8)
[2024-11-12] MEDS: ONDANSETRON HCL 4 MG/2 ML VIAL IV PRN (15:22)
[2024-11-12] MEDS: MORPHINE SULFATE INJ 2 MG/ml SYRG IV ONE (15:23)
[2024-11-12] MEDS: HYDROcodone-ACET 5/325MG TAB PO PRN (17:23)
[2024-11-12 18:15] LABS: INR 1.12 (0.9-1.15); Partial Thromboplastin Time 55.8 SEC (24.5-34.5); Prothrombin Time 11.7 sec (9.3-11.8)
[2024-11-12 18:58] VITALS: O2SAT 95
[2024-11-12] MEDS: KETOROLAC TROMETH 30 MG/ML 1ML VIAL IV ONE (21:15)
[2024-11-12 21:20] VITALS: BP 129/86; PULSE 92; RESP 18; TEMP 98.3; O2SAT 95
[2024-11-12 21:25] VITALS: BP 129/56; PULSE 92; PULSE 95; RESP 18; TEMP 98.3; O2SAT 95; O2SAT 97
[2024-11-12] MEDS: ATORVASTATIN 20 MG TAB PO SCH (21:36)
[2024-11-12] MEDS ORDERED: SEMA2INJ3 SC (22:31)
[2024-11-13] VITALS (10 sets, daily range): BP systolic 113–126; BP diastolic 63–89; PULSE 81–102; RESP 18–20; TEMP 97.4–98.5; O2SAT 95–96
[2024-11-13 06:32] LABS: Hematocrit 34.2 % (41.0-53.0); Hemoglobin 11.5 g/dL (13.5-17.5); Mean Corpuscular Hemoglobin 29.5 pg (28.0-32.0); Mean Corpuscular Volume 88.0 fL (80.0-100.0); Nucleated Red Blood Cells % 0.3 %
[2024-11-13 06:49] LABS: Albumin 4.0 g/dL (3.2-4.8); Alkaline Phosphatase 88 U/L (46-116); Anion Gap 9 (5-15); BUN/Creatinine Ratio 12.8 (10.0-20.0); Blood Urea Nitrogen 17 mg/dL (9-23); Calcium 9.2 mg/dL (8.7-10.4); Carbon Dioxide 27 mmol/L (20-31); Chloride 102 mmol/L (98-107); Potassium 4.1 mmol/L (3.5-5.1); Sodium 138 mmol/L (136-145); Total Protein 6.1 g/dL (5.7-8.2)
[2024-11-13 06:50] LABS: Bilirubin, Total 0.4 mg/dL (0.2-1.0)
[2024-11-13 06:53] LABS: Glucose 179 mg/dL (74-106)
[2024-11-13 06:54] LABS: Alanine Aminotransferase 96 U/L (7-40)
[2024-11-13 06:55] LABS: INR 1.13 (0.9-1.15); Prothrombin Time 11.8 sec (9.3-11.8)
[2024-11-13 07:01] LABS: Partial Thromboplastin Time 79.4 SEC (24.5-34.5)
[2024-11-13] MEDS: HEPARIN DRIP/D5W 100UNITS/ML 250 ML IV SCH (08:03)
--- NOTE | 2024-11-13 12:30 | DVHPN2 ---
Reviewed: Care Plan, H&P, Labs, Medications, Previous Orders, Radiology Changes from previous H/P or p: No Changes Eyes: No Pain, No Vision change, No Conjunctivae inflammation, No Eyelid inflammation, No Other, No Redness ENT: No Ear pain, No Ear discharge, No Nose pain, No Nose discharge, No Nose congestion, No Mouth pain, No Mouth swelling, No Throat pain, No Throat swelling, No Other Cardiovascular: No Chest Pain, No Palpitations, No Orthopnea, No Paroxysmal Noc. Dyspnea, No Edema, No Lt Headedness, No Other Respiratory: No Cough, No Dry, No Shortness of breath, No SOB with excertion, No Wheezing, No Hemoptysis, No Pleuritic Pain, No Sputum, No Other Gastrointestinal: No Nausea, No Vomiting, No Abdominal Pain, No Diarrhea, No Constipation, No Melena, No Hematochezia, No Other Genitourinary: No Dysuria, No Frequency, No Incontinence, No Hematuria, No Retention, No Other Musculoskeletal: other (3+ pitting edema, asymmetrically larger than the left.); No neck pain, No shoulder pain, No arm pain, No back pain, No hand pain, No leg pain, No foot pain Skin: No Rash, No Lesions, No Jaundice, No Bruising; Other (Mild redness, hyperpigmentation.) Objective Vitals Vital Signs Date Time Temp Pulse Resp B/P (MAP) Pulse Ox O2 Delivery O2 Flow Rate FiO2 11/13/24 09:24 120/65 11/13/24 09:00 97.4 89 20 95 97.4 11/13/24 08:00 Room Air* 0 21 Intake/Output Intake and Output 11/13/24 06:59 Intake Total 1440 ml Output Total 600 ml Balance 840 ml Intake Oral 680 ml IV Total 760 ml Output Urine Total 600 ml Medications Current Medications Medications Dose Ordered Sig/Nahun Route Start Time Stop Time Status Last Admin Dose Admin Amlodipine Besylate 5 mg DAILY PO 11/13/24 10:00 11/13/24 09:24 5 MG Atorvastatin Calcium 10 mg HS PO 11/12/24 22:00 11/12/24 21:36 10 MG Clonidine HCl 0.1 mg Q4HP PRN PO 11/12/24 10:45 Albuterol 2.5 mg Q4HPRN PRN NEB 11/12/24 10:45 Diagnostic Test (Pha) 1 strip IQ4HR 11/12/24 12:00 11/13/24 11:49 1 STRIP Insulin Human Regular IQ4HR SC 11/12/24 12:00 11/13/24 11:49 6 UNITS Dextrose 50 ml UD PRN IV 11/12/24 10:45 Sodium Chloride 1,000 ml @ 60 mls/hr [id number] IV 11/12/24 10:45 11/12/24 11:21 60 MLS/HR Acetaminophen/ Hydrocodone Bitart 1 tab Q4HP PRN PO 11/12/24 10:45 11/13/24 09:23 1 TAB Ondansetron HCl 4 mg Q4HP PRN IV 11/12/24 10:45 11/12/24 15:22 4 MG Docusate Sodium 100 mg BIDPRN PRN PO 11/12/24 10:45 Acetaminophen 650 mg Q6HP PRN PO 11/12/24 10:45 Nitroglycerin 0.4 mg Q5MINP PRN SL 11/12/24 10:45 Morphine Sulfate 2 mg Q30M PRN IV 11/12/24 10:45 Heparin Sodium/ Dextrose 250 ml @ 18 mls/hr [id number] IV 11/13/24 07:45 11/13/24 08:03 18 MLS/HR Laboratory Results Laboratory Tests 11/13/24 05:59 Chemistry Test 11/13/24 05:59 Albumin 4.0 g/dL (3.2-4.8) Calcium Level 9.2 mg/dL (8.7-10.4) Total Protein 6.1 g/dL (5.7-8.2) Coagulation Test 11/12/24 17:33 11/12/24 23:20 11/13/24 05:59 Prothrombin Time 11.7 sec (9.3-11.8) 11.8 sec (9.3-11.8) Prothrombin Time INR 1.12 (0.9-1.15) 1.13 (0.9-1.15) Activated Partial Thromboplast Time 55.8 SEC (24.5-34.5) H 61.4 SEC (24.5-34.5) H 79.4 SEC (24.5-34.5) *H LFT Test 11/13/24 05:59 Alanine Aminotransferase (ALT) 96 U/L (7-40) H Alkaline Phosphatase 88 U/L (46-116) Aspartate Amino Transferase (AST) 77 U/L (13-40) H Total Bilirubin 0.4 mg/dL (0.2-1.0) Labs and/or images reviewed: Labs reviewed by me, Image(s) reviewed by me Assessment/Plan Assessment/Plan Acute light lower extremity pain DVT right popliteal vein: Heparin per protocol, cardiology consult by Dr. Guevara History of PE x4 Asthma Diabetes Hypercholesterolemia Hypotension Stage III cirrhosis of liver Time spent 70 minutes Advanced care planning time 20 minutes Patient is full code Plan discussed with: Patient Date of Service: Nov 13, 2024 Billing Provider: REBECCA LOU MD Common Visit Codes: [id number] CARE 30-74 MIN REBECCA LOU MD Nov 13, 2024 12:30
[2024-11-13] MEDS: HYDROcodone-ACET 10/325MG TAB PO PRN (13:22)
--- NOTE | 2024-11-13 15:16 | DVHINCON2 ---
Date Seen: Nov 13, 2024 Referring Physician MD Mark Reason for Consultation RLE DVT History of Present Illness This is a 49-year-old man who presented to the emergency room with a chief complaint of right lower extremity swelling for two weeks. The patient complains of progressive rule out extremely swelling and pain prompting him to seek further medical attention. He is positive for a nonocclusive thrombus in t he right popliteal vein. States he is able to ambulate and still drive his vehicle without any restrictions. Denies any extensive recent travels via car or airplane. 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 He has an extensive history of blood clots stating he was on Eliquis therapy 10 mg QD which has not been filled by his PCP within the past month. The patient has been recommended to follow-up as outpatient with a communications tower technician for further evaluation which somehow the patient has not completed yet. Significant medical history includes bilateral PE/RLE DVT in 2017 status post laminectomy sx for which he was started on Xarelto therapy then developing a LLE DVT within 6 mos of surgery for which he was initiated on warfarin therapy and then transitioned to Eliquis therapy 10mg QD in 2020, hypertension, dyslipidemia, how-ybtarrr-vqcdagonk diabetes mellitus, chronic kidney disease, liver cirrhosis, asthma, and morbid obesity. Past Medical History Past medical history reviewed. No other significant than mentioned above. Past Surgical History Laminectomy Right knee Cholecystectomy Family History: Diabetes mellitus G8 MOTHER Grnadmother Family History Family history reviewed. Not significant for coagulopathies. Social History Denies the use of illicit drugs, alcohol, or tobacco use. Stopped smoking cigarettes over a year ago. Allergies: Uncoded Allergies: SULFA (Allergy, Unknown, 06/21/20) Home Meds Active Scripts Albuterol Sulfate (VENTOLIN MDI) 90 Mcg Ih, 180 MCG IN Q6HP PRN for 20 Days, #1 MCG Prov:BETSEY JESUS DO 06/02/23 Doxycycline Hyclate (DOXYCYCLINE HYCLATE) 100 Mg Tab, 1 TAB PO BID for 10 Days, #20 TAB Prov:BETSEY JESUS DO 06/02/23 Dexamethasone (Decadron) 4 Mg Tb, 8 MG PO DAILY for 9 Days, #18 TAB Prov:BETSEY JESUS DO 06/02/23 Clindamycin Hcl (Clindamycin Hcl) 300 Mg Cap, 1 CAP PO TID for 10 Days, #30 CAP Prov:CORY ÁLVAREZ 01/04/23 Methylprednisolone (Medrol Dosepak) 4 Mg Dario, 4 MG PO UD, #21 TAB UAD Prov:VON MITCHELL 10/22/22 Ibuprofen (Ibuprofen) 800 Mg Tab, 1 TAB PO TID, #30 TAB Prov:VON MITCHELL 10/22/22 Baclofen (Baclofen) 20 Mg Tab, 1 TAB PO TID for 5 Days, #15 TAB 3 Refills Prov:MINERVAGLORIA M CORDUROY CUTTER OPERATOR 12/11/21 Hydrocodone-Acetaminophen (Hydrocodone Bitartrate/AC 5-325 mg) 1 Tab Tab, 1 TAB PO Q6HP PRN for 7 Days, #28 TAB Prov:GLORIA PALMA NP 12/11/21 Lisinopril (Lisinopril) 20 Mg Tab, 20 MG PO DAILY for 30 Days, #30 TAB Prov:GLORIA PALMA CORDUROY CUTTER OPERATOR 12/11/21 Atorvastatin Calcium (ATORVASTATIN CALCIUM) 20 Mg Tab, 10 MG PO DAILY for 30 Days, #15 TAB Prov:MINERVAGLORIA M CORDUROY CUTTER OPERATOR 12/11/21 Amlodipine Besylate (NORVASC TABLET) 5 Mg Tb, 5 MG PO DAILY for 30 Days, #30 TAB Prov:MINERVASABINOGLORIA M CORDUROY CUTTER OPERATOR 12/11/21 Reported Medications Semaglutide (Ozempic) 2 Mg/3 Ml Inj, 2 MG SC, INJ 11/12/24 Chlorpromazine Hcl (Chlorpromazine Hcl) 100 Mg Tab, 100 MG PO, TAB 12/09/21 Apixaban Base (ELIQUIS) 2.5 Mg Tab, 2.5 MG PO BID, TAB 12/09/21 Semaglutide (Rybelsus) 3 Mg Tab, 3 MG PO, TAB 12/09/21 Atorvastatin Calcium (ATORVASTATIN CALCIUM) 10 Mg Tab, 1 TAB PO DAILY, #30 TAB 5 Refills 12/09/21 Metformin Hydrochloride (Metformin Hcl) 1,000 Mg Tab, 1 TAB PO BID, #180 TAB 3 Refills 12/09/21 Spironolactone (Spironolactone) 50 Mg Tab, 1 TAB PO DAILY, #30 TAB 5 Refills 12/09/21 Metoprolol Succinate (Toprol Xl) 25 Mg Tab, 1 TAB PO DAILY, #30 TAB 5 Refills 12/09/21 Home Meds Home medications reviewed. Current Medications Current Medications Medications (Trade) Dose Ordered Sig/Nahun Route PRN Reason Start Time Stop Time Status Last Admin Amlodipine Besylate (Norvasc Tablet) 5 mg DAILY PO 11/13/24 10:00 11/13/24 09:24 Atorvastatin Calcium (Lipitor) 10 mg HS PO 11/12/24 22:00 11/12/24 21:36 Heparin Sodium/ Dextrose 250 ml @ 18 mls/hr [id number] IV 11/13/24 07:45 11/13/24 08:03 Acetaminophen/ Hydrocodone Bitart ([place] 10/325MG Tab) 1 tab Q6HP PRN PO SEVERE PAIN (7-10 PAIN SCALE) 11/13/24 13:15 11/13/24 13:22 Review of Systems Constitutional: No symptom reported Ears, Nose, & Throat: No symptom reported Eyes: No symptom reported Neurological: No symptoms reported Pulmonary/Respiratory: No symptom reported Cardiovascular: No symptom reported Gastrointestinal: No symptom reported Genitourinary: No symptom reported Musculoskeletal: RLE edema/pain Skin: No symptom reported Psychiatric: No symptom reported Endocrine: No symptom reported Hemotologic/Lymphatic: No symptom reported Vital Signs Vital Signs Date Time Temp Pulse Resp B/P (MAP) Pulse Ox O2 Delivery O2 Flow Rate FiO2 11/13/24 13:00 98.0 90 20 114/73 (87) 96 98.0 11/13/24 08:00 Room Air* 0 21 Physical Exam General Appearance: Cooperative. Well developed. Morbidly obese. In no acute distress Head Exam: Normal inspection Neck Exam: Normal inspection. Non-tender. Normal alignment Pulmonary/Respiratory: Chest non-tender. Clear bilateral breath sounds Cardiovascular/Chest: Regular rate and rhythm. S1, S2. Sinus rhythm. No murmurs. No JVD. Peripheral Pulses: 2+ Radial (R). 2+ Radial (L). 2+ Pedal (R). 2+ Pedal (L) Abdominal Exam: Normal bowel sounds. Soft. Nontender. No hepatospenomegaly. No masses Ankle Exam: Negative ankle edema Lower extremities: Right lower extremity edema, non-pitting Neuro/Mental Status: A&O x4. Coherent Thoughts/Psych: Normal thought pattern. Appropriate mood and affect. Good judgement and insight Appearance: In no acute distress Skin Exam: Normal inspection. Normal color. Warm. Dry Labs/Diagnostic Data Labs Test 11/13/24 11:03 11/13/24 05:59 11/12/24 08:22 Range/Units POC Glucose 236 H 70-106 mg/dl White Blood Count 4.3 L 4.4-10.8 10^3/uL Red Blood Count 3.88 L 4.5-5.90 10^6/uL Hemoglobin 11.5 L 13.5-17.5 g/dL Hematocrit 34.2 L 41.0-53.0 % Mean Corpuscular Volume 88.0 80.0-100.0 fL Mean Corpuscular Hemoglobin 29.5 28.0-32.0 pg Mean Corpuscular Hemoglobin Concent 33.6 32.0-36.0 g/dL Red Cell Distribution Width 16.3 H 11.8-14.3 % Platelet Count 147 140-450 10^3/uL Mean Platelet Volume 8.4 6.9-10.8 fL Neutrophils (%) (Auto) 51.7 37.0-80.0 % Lymphocytes (%) (Auto) 35.4 10.0-50.0 % Monocytes (%) (Auto) 9.5 0.0-12.0 % Eosinophils (%) (Auto) 2.5 0.0-7.0 % Basophils (%) (Auto) 0.9 0.0-2.0 % Neutrophils # (Auto) 2.2 1.6-8.6 10 ^3/uL Lymphocytes # (Auto) 1.5 0.4-5.4 10 ^3/uL Monocytes # (Auto) 0.4 0-1.3 10 ^3/uL Eosinophils # (Auto) 0.1 0-0.8 10 ^3/uL Basophils # (Auto) 0 0-0.2 10 ^3/uL Nucleated Red Blood Cells 0.3 % Prothrombin Time 11.8 9.3-11.8 sec Prothrombin Time INR 1.13 0.9-1.15 Activated Partial Thromboplast Time 79.4 *H 24.5-34.5 SEC Sodium Level 138 136-145 mmol/L Potassium Level 4.1 3.5-5.1 mmol/L Chloride Level 102 98-107 mmol/L Carbon Dioxide Level 27 20-31 mmol/L Anion Gap 9 5-15 Blood Urea Nitrogen 17 9-23 mg/dL Creatinine 1.33 H 0.700-1.30 mg/dL Glomerular Filtration Rate Calc 65 >90 mL/min BUN/Creatinine Ratio 12.8 10.0-20.0 Serum Glucose 179 H 74-106 mg/dL Calcium Level 9.2 8.7-10.4 mg/dL Total Bilirubin 0.4 0.2-1.0 mg/dL Aspartate Amino Transferase (AST) 77 H 13-40 U/L Alanine Aminotransferase (ALT) 96 H 7-40 U/L Alkaline Phosphatase 88 46-116 U/L Total Protein 6.1 5.7-8.2 g/dL Albumin 4.0 3.2-4.8 g/dL Assessment Right lower extremity DVT History of bilateral PE/bilateral DVT (2016) Suboptimal medical therapy (stopped Eliquis x 1 mo ago) Rule out hypercoagulability Hypertension Dyslipidemia Yzq-xeiiclz-vnoebnaqs diabetes mellitus Chronic kidney disease Liver cirrhosis Morbid obesity Plan/Recommendation (Dr. Guevara) Patient with a history of bilateral PE and multiple lower extremity DVTs has been off Eliquis therapy for approximately one month. Highly suspected for hypercoagulabilities for which recommendation is to initiate continuous warfarin therapy along with heparin drip until therapeutic INR levels have been reached. He was strongly advised to follow-up with pharmacovigilance specialist as outpatient for hypercoagulability panel: antithrombin III, factor V, fibrinogen, lupus anticoagulant, MTHFR gene, protein C, protein S, and prothrombin 41730 mutation levels. He was also strongly instructed not to stop anticoagulation therapy at anytime given high risk of thrombosis and to follow up with Coumadin clinic of regular basis. This is a further cardiac workup indicated at this time. Kindly call if in need to re-consult. Thank you for allowing us to participate in this patient's care. This medical document was created using an electronic medical record system with voice recognition software and computerized dictation system. Although this document has been carefully reviewed, there might still be some phonetic and typographical errors. Occasional wrong-word or ``sound-alike substitutions may have occurred due to the inherent limitations of voice recognition software. These areas are purely typographical due to imperfections of the software programs and do not reflect any compromise in the patient's medical care. Please read the chart carefully and recognize, using context, where these substitutions have occurred. Plan discussed with: Patient, Other NYHA Physical activity limitations: NA Date of Service: Nov 13, 2024 Billing Provider: DANA MATTSON Cardiology Common Codes: [id number] INP/OBS CARE (High) DANA MATTSON Nov 13, 2024 15:16
[2024-11-13 15:26] LABS: INR 1.11 (0.9-1.15); Partial Thromboplastin Time 67.1 SEC (24.5-34.5); Prothrombin Time 11.6 sec (9.3-11.8)
[2024-11-13] MEDS: WARFARIN SODIUM 5 MG TAB PO ONE (18:22)
[2024-11-13 21:24] LABS: INR 1.12 (0.9-1.15); Partial Thromboplastin Time 59.1 SEC (24.5-34.5); Prothrombin Time 11.7 sec (9.3-11.8)
--- NOTE | 2024-11-13 22:53 | DVHINCON2 ---
Date Seen: Nov 13, 2024 Referring Physician MD Mark Reason for Consultation RLE DVT History of Present Illness This is a 49-year-old male with a PMH of bilateral PE/RLE DVT in 2017 status post laminectomy sx for which he was started on Xarelto therapy then developing a LLE DVT within 6 mos of surgery for which he was initiated on warfarin therapy and then transitioned to Eliquis therapy 10mg QD in 2020, hypertension, dy slipidemia, wot-bbmikds-fqvzjxnjf diabetes mellitus, chronic kidney disease, liver cirrhosis, asthma, and morbid obesity who presented to the ED with complaints of right lower extremity swelling for two weeks. The patient complains of progressive rule out extremely swelling and pain prompting him to seek further medical attention. He is positive for a nonocclusive thrombus in the right popliteal vein. States he is able to ambulate and still drive his vehicle without any restrictions. Denies any extensive recent travels via car or airplane. 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 He has an extensive history of blood clots stating he was on Eliquis therapy 10 mg QD which has not been filled by his PCP within the past month. The patient has been recommended to follow-up as outpatient with a diet assistant for further evaluation which somehow the patient has not completed yet. Patient was admitted to the hospital. I am asked to consult on this patient. Past Medical History Past medical history reviewed. No other significant than mentioned above. Past Surgical History Laminectomy Right knee Cholecystectomy Family History: Diabetes mellitus G8 MOTHER Grnadmother Allergies: Uncoded Allergies: SULFA (Allergy, Unknown, 06/21/20) Home Meds Active Scripts Albuterol Sulfate (VENTOLIN MDI) 90 Mcg Ih, 180 MCG IN Q6HP PRN for 20 Days, #1 MCG Prov:BTESEY JESUS S DO 06/02/23 Doxycycline Hyclate (DOXYCYCLINE HYCLATE) 100 Mg Tab, 1 TAB PO BID for 10 Days, #20 TAB Prov:BETSEY JESUS DO 06/02/23 Dexamethasone (Decadron) 4 Mg Tb, 8 MG PO DAILY for 9 Days, #18 TAB Prov:BETSEY JESUS DO 06/02/23 Clindamycin Hcl (Clindamycin Hcl) 300 Mg Cap, 1 CAP PO TID for 10 Days, #30 CAP Prov:CORY ÁLVAREZ VENETIAN BLIND WASHER 01/04/23 Methylprednisolone (Medrol Dosepak) 4 Mg Dario, 4 MG PO UD, #21 TAB UAD Prov:VON MITCHELL 10/22/22 Ibuprofen (Ibuprofen) 800 Mg Tab, 1 TAB PO TID, #30 TAB Prov:STEPHENNUBIATorin PA 10/22/22 Baclofen (Baclofen) 20 Mg Tab, 1 TAB PO TID for 5 Days, #15 TAB 3 Refills Prov:GLORIA PALMA WATER SPONGER 12/11/21 Hydrocodone-Acetaminophen (Hydrocodone Bitartrate/AC 5-325 mg) 1 Tab Tab, 1 TAB PO Q6HP PRN for 7 Days, #28 TAB Prov:GLORIA PALMA Chad EDDY 12/11/21 Lisinopril (Lisinopril) 20 Mg Tab, 20 MG PO DAILY for 30 Days, #30 TAB Prov:MINERVAGLORIA Chad EDDY 12/11/21 Atorvastatin Calcium (ATORVASTATIN CALCIUM) 20 Mg Tab, 10 MG PO DAILY for 30 Days, #15 TAB Prov:GLORIA PALMA Chad EDDY 12/11/21 Amlodipine Besylate (NORVASC TABLET) 5 Mg Tb, 5 MG PO DAILY for 30 Days, #30 TAB Prov:GLORIA PAMLA WATER SPONGER 12/11/21 Reported Medications Semaglutide (Ozempic) 2 Mg/3 Ml Inj, 2 MG SC, INJ 11/12/24 Chlorpromazine Hcl (Chlorpromazine Hcl) 100 Mg Tab, 100 MG PO, TAB 12/09/21 Apixaban Base (ELIQUIS) 2.5 Mg Tab, 2.5 MG PO BID, TAB 12/09/21 Semaglutide (Rybelsus) 3 Mg Tab, 3 MG PO, TAB 12/09/21 Atorvastatin Calcium (ATORVASTATIN CALCIUM) 10 Mg Tab, 1 TAB PO DAILY, #30 TAB 5 Refills 12/09/21 Metformin Hydrochloride (Metformin Hcl) 1,000 Mg Tab, 1 TAB PO BID, #180 TAB 3 Refills 12/09/21 Spironolactone (Spironolactone) 50 Mg Tab, 1 TAB PO DAILY, #30 TAB 5 Refills 12/09/21 Metoprolol Succinate (Toprol Xl) 25 Mg Tab, 1 TAB PO DAILY, #30 TAB 5 Refills 12/09/21 Current Medications Current Medications Medications (Trade) Dose Ordered Sig/Nahun Route PRN Reason Start Time Stop Time Status Last Admin Amlodipine Besylate (Norvasc Tablet) 5 mg DAILY PO 11/13/24 10:00 11/13/24 09:24 Heparin Sodium/ Dextrose 250 ml @ 18 mls/hr [id number] IV 11/13/24 07:45 11/13/24 08:03 Acetaminophen/ Hydrocodone Bitart ([place] 10/325MG Tab) 1 tab Q6HP PRN PO SEVERE PAIN (7-10 PAIN SCALE) 11/13/24 13:15 11/13/24 19:40 Warfarin Sodium (Coumadin Per Rx Protocol) RX PROTOCOL PER PHARMACY PO 11/13/24 17:00 Review of Systems Constitutional: No symptom reported Ears, Nose, & Throat: No symptom reported Eyes: No symptom reported Neurological: No symptoms reported Pulmonary/Respiratory: No symptom reported Cardiovascular: No symptom reported Gastrointestinal: No symptom reported Genitourinary: No symptom reported Musculoskeletal: RLE edema/pain Skin: No symptom reported Psychiatric: No symptom reported Endocrine: No symptom reported Hemotologic/Lymphatic: No symptom reported Vital Signs Vital Signs Date Time Temp Pulse Resp B/P (MAP) Pulse Ox O2 Delivery O2 Flow Rate FiO2 11/13/24 21:00 98.0 102 19 126/89 (101) 95 98.0 11/13/24 19:58 Room Air* 0 21 Physical Exam GENERAL: Alert and oriented x 3. No acute distress. Morbidly obese. EYES: PERRL, EOMI. Anicteric. HENT: Moist mucous membranes. LUNGS: Clear to auscultation bilaterally. CARDIOVASCULAR: Regular rate and rhythm. ABDOMEN: Soft, non-tender and non-distended. EXTREMITIES: Right lower extremity edema, non-pitting. NEUROLOGIC: No focal neurological deficits. SKIN: Warm, dry. Labs/Diagnostic Data Labs Test 11/13/24 20:57 11/13/24 16:21 11/13/24 05:59 11/12/24 08:22 Range/Units Prothrombin Time 11.7 9.3-11.8 sec Prothrombin Time INR 1.12 0.9-1.15 Activated Partial Thromboplast Time 59.1 H 24.5-34.5 SEC POC Glucose 179 H 70-106 mg/dl White Blood Count 4.3 L 4.4-10.8 10^3/uL Red Blood Count 3.88 L 4.5-5.90 10^6/uL Hemoglobin 11.5 L 13.5-17.5 g/dL Hematocrit 34.2 L 41.0-53.0 % Mean Corpuscular Volume 88.0 80.0-100.0 fL Mean Corpuscular Hemoglobin 29.5 28.0-32.0 pg Mean Corpuscular Hemoglobin Concent 33.6 32.0-36.0 g/dL Red Cell Distribution Width 16.3 H 11.8-14.3 % Platelet Count 147 140-450 10^3/uL Mean Platelet Volume 8.4 6.9-10.8 fL Neutrophils (%) (Auto) 51.7 37.0-80.0 % Lymphocytes (%) (Auto) 35.4 10.0-50.0 % Monocytes (%) (Auto) 9.5 0.0-12.0 % Eosinophils (%) (Auto) 2.5 0.0-7.0 % Basophils (%) (Auto) 0.9 0.0-2.0 % Neutrophils # (Auto) 2.2 1.6-8.6 10 ^3/uL Lymphocytes # (Auto) 1.5 0.4-5.4 10 ^3/uL Monocytes # (Auto) 0.4 0-1.3 10 ^3/uL Eosinophils # (Auto) 0.1 0-0.8 10 ^3/uL Basophils # (Auto) 0 0-0.2 10 ^3/uL Nucleated Red Blood Cells 0.3 % Sodium Level 138 136-145 mmol/L Potassium Level 4.1 3.5-5.1 mmol/L Chloride Level 102 98-107 mmol/L Carbon Dioxide Level 27 20-31 mmol/L Anion Gap 9 5-15 Blood Urea Nitrogen 17 9-23 mg/dL Creatinine 1.33 H 0.700-1.30 mg/dL Glomerular Filtration Rate Calc 65 >90 mL/min BUN/Creatinine Ratio 12.8 10.0-20.0 Serum Glucose 179 H 74-106 mg/dL Calcium Level 9.2 8.7-10.4 mg/dL Total Bilirubin 0.4 0.2-1.0 mg/dL Aspartate Amino Transferase (AST) 77 H 13-40 U/L Alanine Aminotransferase (ALT) 96 H 7-40 U/L Alkaline Phosphatase 88 46-116 U/L Total Protein 6.1 5.7-8.2 g/dL Albumin 4.0 3.2-4.8 g/dL Assessment Right lower extremity DVT. History of bilateral PE/bilateral DVT (2017). Suboptimal medical therapy (stopped Eliquis x 1 mo ago). Rule out hypercoagulability. Hypertension. Dyslipidemia. Soe-wfhqcnq-ywglvqwop diabetes mellitus. Chronic kidney disease. Liver cirrhosis. Morbid obesity. Plan/Recommendation I agree with your ongoing assessment and care of plan. Patient has been seen by Susannah Billingsley NP on my behalf. We have discussed the plan with the patient. Patient with a history of bilateral PE and multiple lower extremity DVTs has been off Eliquis therapy for approximately one month. Highly suspected for hypercoagulabilities for which recommendation is to initiate continuous warfarin therapy along with heparin drip until therapeutic INR levels have been reached. He was strongly advised to follow-up with web operations specialist as outpatient for hypercoagulability panel: antithrombin III, factor V, fibrinogen, lupus anticoagulant, MTHFR gene, protein C, protein S, and prothrombin 19180 mutation levels. He was also strongly instructed not to stop anticoagulation therapy at anytime given high risk of thrombosis and to follow up with Coumadin clinic of regular basis. Additional plan as per the hospital course. Plan discussed with: Patient NYHA Physical activity limitations: NA Date of Service: Nov 13, 2024 Billing Provider: ARIANNA ENNIS MD Cardiology Common Codes: [id number] INP/OBS CARE (High) ARIANNA ENNIS MD Nov 13, 2024 22:53
[2024-11-14] VITALS (10 sets, daily range): BP systolic 100–135; BP diastolic 63–93; PULSE 81–100; RESP 16–95; TEMP 97.6–99; O2SAT 94–98
[2024-11-14 02:58] LABS: Hematocrit 34.1 % (41.0-53.0); Hemoglobin 11.4 g/dL (13.5-17.5); Mean Corpuscular Hemoglobin 29.1 pg (28.0-32.0); Mean Corpuscular Volume 86.9 fL (80.0-100.0); Nucleated Red Blood Cells % 0.1 %
[2024-11-14 03:13] LABS: INR 1.13 (0.9-1.15); Partial Thromboplastin Time 63.0 SEC (24.5-34.5); Prothrombin Time 11.8 sec (9.3-11.8)
--- NOTE | 2024-11-14 11:18 | DVHPN2 ---
Reviewed: Care Plan, H&P, Labs, Medications, Previous Orders, Radiology Changes from previous H/P or p: No Changes Eyes: No Pain, No Vision change, No Conjunctivae inflammation, No Eyelid inflammation, No Other, No Redness ENT: No Ear pain, No Ear discharge, No Nose pain, No Nose discharge, No Nose congestion, No Mouth pain, No Mouth swelling, No Throat pain, No Throat swelling, No Other Cardiovascular: No Chest Pain, No Palpitations, No Orthopnea, No Paroxysmal Noc. Dyspnea, No Edema, No Lt Headedness, No Other Respiratory: No Cough, No Dry, No Shortness of breath, No SOB with excertion, No Wheezing, No Hemoptysis, No Pleuritic Pain, No Sputum, No Other Gastrointestinal: No Nausea, No Vomiting, No Abdominal Pain, No Diarrhea, No Constipation, No Melena, No Hematochezia, No Other Genitourinary: No Dysuria, No Frequency, No Incontinence, No Hematuria, No Retention, No Other Musculoskeletal: other (3+ pitting edema, asymmetrically larger than the left.); No neck pain, No shoulder pain, No arm pain, No back pain, No hand pain, No leg pain, No foot pain Skin: No Rash, No Lesions, No Jaundice, No Bruising; Other (Mild redness, hyperpigmentation.) Objective Vitals Vital Signs Date Time Temp Pulse Resp B/P (MAP) Pulse Ox O2 Delivery O2 Flow Rate FiO2 11/14/24 09:08 114/86 11/14/24 09:00 98.2 81 20 96 98.2 11/14/24 06:38 Room Air* 0 21 Intake/Output Intake and Output 11/14/24 07:00 Intake Total 1736 ml Balance 1736 ml Intake Oral 1486 ml IV Total 250 ml # Voids 8 # Bowel Movements 2 Medications Current Medications Medications Dose Ordered Sig/Nahun Route Start Time Stop Time Status Last Admin Dose Admin Amlodipine Besylate 5 mg DAILY PO 11/13/24 10:00 11/14/24 09:08 5 MG Atorvastatin Calcium 10 mg HS PO 11/12/24 22:00 11/13/24 21:08 10 MG Clonidine HCl 0.1 mg Q4HP PRN PO 11/12/24 10:45 Albuterol 2.5 mg Q4HPRN PRN NEB 11/12/24 10:45 Diagnostic Test (Pha) 1 strip IQ4HR 11/12/24 12:00 11/14/24 09:09 1 STRIP Insulin Human Regular IQ4HR SC 11/12/24 12:00 11/14/24 09:12 3 UNITS Dextrose 50 ml UD PRN IV 11/12/24 10:45 Sodium Chloride 1,000 ml @ 60 mls/hr [id number] IV 11/12/24 10:45 11/14/24 04:53 60 MLS/HR Ondansetron HCl 4 mg Q4HP PRN IV 11/12/24 10:45 11/12/24 15:22 4 MG Docusate Sodium 100 mg BIDPRN PRN PO 11/12/24 10:45 Acetaminophen 650 mg Q6HP PRN PO 11/12/24 10:45 Nitroglycerin 0.4 mg Q5MINP PRN SL 11/12/24 10:45 Morphine Sulfate 2 mg Q30M PRN IV 11/12/24 10:45 Heparin Sodium/ Dextrose 250 ml @ 18 mls/hr [id number] IV 11/13/24 07:45 11/14/24 01:46 18 MLS/HR Acetaminophen/ Hydrocodone Bitart 1 tab Q6HP PRN PO 11/13/24 13:15 11/14/24 01:43 1 TAB Warfarin Sodium RX PROTOCOL PER PHARMACY PO 11/13/24 17:00 Laboratory Results Laboratory Tests 11/13/24 05:59 11/14/24 02:48 Coagulation Test 11/13/24 14:48 11/13/24 20:57 11/14/24 02:48 Prothrombin Time 11.6 sec (9.3-11.8) 11.7 sec (9.3-11.8) 11.8 sec (9.3-11.8) Prothrombin Time INR 1.11 (0.9-1.15) 1.12 (0.9-1.15) 1.13 (0.9-1.15) Activated Partial Thromboplast Time 67.1 SEC (24.5-34.5) H 59.1 SEC (24.5-34.5) H 63.0 SEC (24.5-34.5) H Labs and/or images reviewed: Labs reviewed by me, Image(s) reviewed by me Assessment/Plan Assessment/Plan Acute light lower extremity pain DVT right popliteal vein:l, cardiology consult by Dr. Guevara appreciated, placed on heparin drip and also started on Coumadin Hypercoagulability state: Patient to follow up with the cardiac rehabilitation specialist as outpatient for further workup History of PE x4 Asthma Diabetes Hypercholesterolemia Hypotension Stage III cirrhosis of liver Noncompliance: Patient has not been taking Eliquis for the last one month and he claims that his PCP did not refill the medication Time spent 50 minutes Advanced care planning time 20 minutes Patient is full code Plan discussed with: Patient My Orders Orders - REBECCA LOU MD Procedure Category Date Status Time * Cardiology Consult CONS 11/13/24 Transmitted 12:28 Hydrocodone-Acet PHA 11/13/24 In Process 10/325mg Tab ([place] 13:15 Date of Service: Nov 14, 2024 Billing Provider: REBECCA LOU MD Common Visit Codes: [id number] INP/OBS CARE(HIGH) REBECCA LOU MD Nov 14, 2024 11:18
[2024-11-14] MEDS: WARFARIN SODIUM 5 MG TAB PO ONE (18:24)
--- NOTE | 2024-11-14 21:42 | DVHPN2 ---
Progress Note - Dictate Date Seen: Nov 14, 2024 Medical Necessity Reason Pt with a Central, PICC or Fol: No Subjective Patient was seen and evaluated in follow up. Patient is complaining of RLE pain/swelling. Patient is on Heparin drip. Telemetry reviewed. vital signs Vital Sign Date Time Temp Pulse Resp B/P (MAP) Pulse Ox O2 Delivery O2 Flow Rate FiO2 11/14/24 13:00 97.8 82 16 131/93 (106) 97 97.8 11/14/24 08:00 Room Air* 0 21 Total Intake and Output 11/13/24 11/13/24 11/14/24 15:00 23:00 07:00 Intake Total 1236 ml 500 ml Balance 1236 ml 500 ml medications Current Medications Medications Dose Ordered Sig/Nahun Route Start Time Stop Time Status Last Admin Dose Admin Amlodipine Besylate 5 mg DAILY PO 11/13/24 10:00 11/14/24 09:08 5 MG Atorvastatin Calcium 10 mg HS PO 11/12/24 22:00 11/13/24 21:08 10 MG Clonidine HCl 0.1 mg Q4HP PRN PO 11/12/24 10:45 Albuterol 2.5 mg Q4HPRN PRN NEB 11/12/24 10:45 Diagnostic Test (Pha) 1 strip IQ4HR 11/12/24 12:00 11/14/24 12:41 1 STRIP Insulin Human Regular IQ4HR SC 11/12/24 12:00 11/14/24 12:40 3 UNITS Dextrose 50 ml UD PRN IV 11/12/24 10:45 Sodium Chloride 1,000 ml @ 60 mls/hr [id number] IV 11/12/24 10:45 11/14/24 04:53 60 MLS/HR Ondansetron HCl 4 mg Q4HP PRN IV 11/12/24 10:45 11/12/24 15:22 4 MG Docusate Sodium 100 mg BIDPRN PRN PO 11/12/24 10:45 Acetaminophen 650 mg Q6HP PRN PO 11/12/24 10:45 Nitroglycerin 0.4 mg Q5MINP PRN SL 11/12/24 10:45 Morphine Sulfate 2 mg Q30M PRN IV 11/12/24 10:45 Heparin Sodium/ Dextrose 250 ml @ 18 mls/hr [id number] IV 11/13/24 07:45 11/14/24 11:49 18 MLS/HR Acetaminophen/ Hydrocodone Bitart 1 tab Q6HP PRN PO 11/13/24 13:15 11/14/24 11:41 1 TAB Warfarin Sodium RX PROTOCOL PER PHARMACY PO 11/13/24 17:00 objective GENERAL: Alert and oriented x 3. No acute distress. Morbidly obese. EYES: PERRL, EOMI. Anicteric. HENT: Moist mucous membranes. LUNGS: Clear to auscultation bilaterally. CARDIOVASCULAR: Regular rate and rhythm. ABDOMEN: Soft, non-tender and non-distended. EXTREMITIES: Right lower extremity edema, non-pitting. NEUROLOGIC: No focal neurological deficits. SKIN: Warm, dry. laboratory and microbiology Laboratory Tests 11/14/24 02:48 11/13/24 05:59 Test 11/13/24 05:59 Range/Units Serum Glucose 179 H 74-106 mg/dL Problem List Right lower extremity DVT. History of bilateral PE/bilateral DVT (2017). Suboptimal medical therapy (stopped Eliquis x 1 mo ago). Rule out hypercoagulability. Hypertension. Dyslipidemia. Lic-etxfuxf-khvutgumi diabetes mellitus. Chronic kidney disease. Liver cirrhosis. Morbid obesity. Assessment/Plan Continued all current supportive medical care. Amlodipine, Clonidine. Nitro SL. Heparin drip per pharmacy. [place] for pain management. Additional plan as per the hospital course. Plan discussed with: Patient ARIANNA ENNIS MD Nov 14, 2024 17:30
[2024-11-15] VITALS (11 sets, daily range): BP systolic 115–135; BP diastolic 77–88; PULSE 47–95; RESP 16–22; TEMP 96.9–98.7; O2SAT 92–97
[2024-11-15 06:33] LABS: INR 1.19 (0.9-1.15); Partial Thromboplastin Time 59.0 SEC (24.5-34.5); Prothrombin Time 12.4 sec (9.3-11.8)
--- NOTE | 2024-11-15 12:12 | DVHPN2 ---
Reviewed: Care Plan, H&P, Labs, Medications, Previous Orders, Radiology Changes from previous H/P or p: No Changes Eyes: No Pain, No Vision change, No Conjunctivae inflammation, No Eyelid inflammation, No Other, No Redness ENT: No Ear pain, No Ear discharge, No Nose pain, No Nose discharge, No Nose congestion, No Mouth pain, No Mouth swelling, No Throat pain, No Throat swelling, No Other Cardiovascular: No Chest Pain, No Palpitations, No Orthopnea, No Paroxysmal Noc. Dyspnea, No Edema, No Lt Headedness, No Other Respiratory: No Cough, No Dry, No Shortness of breath, No SOB with excertion, No Wheezing, No Hemoptysis, No Pleuritic Pain, No Sputum, No Other Gastrointestinal: No Nausea, No Vomiting, No Abdominal Pain, No Diarrhea, No Constipation, No Melena, No Hematochezia, No Other Genitourinary: No Dysuria, No Frequency, No Incontinence, No Hematuria, No Retention, No Other Musculoskeletal: other (3+ pitting edema, asymmetrically larger than the left.); No neck pain, No shoulder pain, No arm pain, No back pain, No hand pain, No leg pain, No foot pain Skin: No Rash, No Lesions, No Jaundice, No Bruising; Other (Mild redness, hyperpigmentation.) Objective Vitals Vital Signs Date Time Temp Pulse Resp B/P (MAP) Pulse Ox O2 Delivery O2 Flow Rate FiO2 11/15/24 09:45 118/85 11/15/24 09:00 98.5 80 17 92 98.5 11/15/24 08:00 Room Air* 0 21 Intake/Output Intake and Output 11/15/24 07:00 Intake Total 2220 ml Balance 2220 ml Intake Oral 2220 ml # Voids 8 Medications Current Medications Medications Dose Ordered Sig/Nahun Route Start Time Stop Time Status Last Admin Dose Admin Amlodipine Besylate 5 mg DAILY PO 11/13/24 10:00 11/15/24 09:45 5 MG Atorvastatin Calcium 10 mg HS PO 11/12/24 22:00 11/14/24 21:42 10 MG Clonidine HCl 0.1 mg Q4HP PRN PO 11/12/24 10:45 Albuterol 2.5 mg Q4HPRN PRN NEB 11/12/24 10:45 Diagnostic Test (Pha) 1 strip IQ4HR 11/12/24 12:00 11/15/24 08:43 1 STRIP Insulin Human Regular IQ4HR SC 11/12/24 12:00 11/15/24 08:45 3 UNITS Dextrose 50 ml UD PRN IV 11/12/24 10:45 Sodium Chloride 1,000 ml @ 60 mls/hr [id number] IV 11/12/24 10:45 11/14/24 04:53 60 MLS/HR Ondansetron HCl 4 mg Q4HP PRN IV 11/12/24 10:45 11/12/24 15:22 4 MG Docusate Sodium 100 mg BIDPRN PRN PO 11/12/24 10:45 Acetaminophen 650 mg Q6HP PRN PO 11/12/24 10:45 Nitroglycerin 0.4 mg Q5MINP PRN SL 11/12/24 10:45 Morphine Sulfate 2 mg Q30M PRN IV 11/12/24 10:45 Heparin Sodium/ Dextrose 250 ml @ 18 mls/hr [id number] IV 11/13/24 07:45 11/15/24 06:51 18 MLS/HR Acetaminophen/ Hydrocodone Bitart 1 tab Q6HP PRN PO 11/13/24 13:15 11/15/24 09:46 1 TAB Warfarin Sodium RX PROTOCOL PER PHARMACY PO 11/13/24 17:00 Laboratory Results Laboratory Tests 11/13/24 05:59 11/14/24 02:48 Coagulation Test 11/15/24 05:31 Prothrombin Time 12.4 sec (9.3-11.8) H Prothrombin Time INR 1.19 (0.9-1.15) H Activated Partial Thromboplast Time 59.0 SEC (24.5-34.5) H Labs and/or images reviewed: Labs reviewed by me, Image(s) reviewed by me Assessment/Plan Assessment/Plan Acute light lower extremity pain DVT right popliteal vein:l, cardiology consult by Dr. Guevara appreciated, placed on heparin drip and also started on Coumadin INR 1.19, Coumadin still not therapeutic Hypercoagulability state: Patient to follow up with the building construction inspector as outpatient for further workup History of PE x4 Asthma Diabetes Hypercholesterolemia Hypotension Stage III cirrhosis of liver Noncompliance: Patient has not been taking Eliquis for the last one month and he claims that his PCP did not refill the medication Time spent 50 minutes Advanced care planning time 20 minutes Patient is full code Plan discussed with: Patient Date of Service: Nov 15, 2024 Billing Provider: REBECCA LOU MD Common Visit Codes: [id number] INP/OBS CARE(HIGH) REBECCA LOU MD Nov 15, 2024 12:12
[2024-11-15] MEDS: HYDROcodone-ACET 10/325MG TAB PO SCH (12:15)
[2024-11-15] MEDS: WARFARIN SODIUM 5 MG TAB PO ONE (21:12)
--- NOTE | 2024-11-15 21:38 | DVHPN2 ---
Progress Note - Dictate Date Seen: Nov 15, 2024 Medical Necessity Reason Pt with a Central, PICC or Fol: No Subjective Patient was seen and evaluated in follow up. Patient states his RLE discomfort/swelling is improving. Patient remains on Heparin drip. Patient denies any chest pain. Telemetry reviewed. vital signs Vital Sign Date Time Temp Pulse Resp B/P (MAP) Pulse Ox O2 Delivery O2 Flow Rate FiO2 11/15/24 09:45 118/85 11/15/24 09:00 98.5 80 17 92 98.5 11/15/24 08:00 Room Air* 0 21 Total Intake and Output 11/14/24 11/14/24 11/15/24 15:00 23:00 07:00 Intake Total 1720 ml 500 ml Balance 1720 ml 500 ml medications Current Medications Medications Dose Ordered Sig/Nahun Route Start Time Stop Time Status Last Admin Dose Admin Amlodipine Besylate 5 mg DAILY PO 11/13/24 10:00 11/15/24 09:45 5 MG Atorvastatin Calcium 10 mg HS PO 11/12/24 22:00 11/14/24 21:42 10 MG Clonidine HCl 0.1 mg Q4HP PRN PO 11/12/24 10:45 Albuterol 2.5 mg Q4HPRN PRN NEB 11/12/24 10:45 Diagnostic Test (Pha) 1 strip IQ4HR 11/12/24 12:00 11/15/24 13:09 1 STRIP Insulin Human Regular IQ4HR SC 11/12/24 12:00 11/15/24 13:09 3 UNITS Dextrose 50 ml UD PRN IV 11/12/24 10:45 Sodium Chloride 1,000 ml @ 60 mls/hr [id number] IV 11/12/24 10:45 11/14/24 04:53 60 MLS/HR Ondansetron HCl 4 mg Q4HP PRN IV 11/12/24 10:45 11/12/24 15:22 4 MG Docusate Sodium 100 mg BIDPRN PRN PO 11/12/24 10:45 Acetaminophen 650 mg Q6HP PRN PO 11/12/24 10:45 Nitroglycerin 0.4 mg Q5MINP PRN SL 11/12/24 10:45 Morphine Sulfate 2 mg Q30M PRN IV 11/12/24 10:45 Heparin Sodium/ Dextrose 250 ml @ 18 mls/hr [id number] IV 11/13/24 07:45 11/15/24 06:51 18 MLS/HR Warfarin Sodium RX PROTOCOL PER PHARMACY PO 11/13/24 17:00 Acetaminophen/ Hydrocodone Bitart 1 tab Q4HR PO 11/15/24 12:15 UNV objective GENERAL: Alert and oriented x 3. No acute distress. Morbidly obese. EYES: PERRL, EOMI. Anicteric. HENT: Moist mucous membranes. LUNGS: Clear to auscultation bilaterally. CARDIOVASCULAR: Regular rate and rhythm. ABDOMEN: Soft, non-tender and non-distended. EXTREMITIES: Right lower extremity edema, non-pitting. NEUROLOGIC: No focal neurological deficits. SKIN: Warm, dry. laboratory and microbiology Laboratory Tests 11/14/24 02:48 11/13/24 05:59 Test 11/13/24 05:59 Range/Units Serum Glucose 179 H 74-106 mg/dL Problem List Right lower extremity DVT. History of bilateral PE/bilateral DVT (2016). Suboptimal medical therapy (stopped Eliquis x 1 mo ago). Rule out hypercoagulability. Hypertension. Dyslipidemia. Kdm-ofgevvv-iiciokyme diabetes mellitus. Chronic kidney disease. Liver cirrhosis. Morbid obesity. Assessment/Plan Continued all current supportive medical care. Amlodipine, Clonidine. Nitro SL. Heparin drip per pharmacy. [place] and Morphine for pain management. Additional plan as per the hospital course. Plan discussed with: Patient ARIANNA ENNIS MD Nov 15, 2024 13:14
[2024-11-16] VITALS (10 sets, daily range): BP systolic 109–142; BP diastolic 76–98; PULSE 83–102; RESP 17–21; TEMP 97.5–98.4; O2SAT 95–97
[2024-11-16 06:38] LABS: INR 1.25 (0.9-1.15); Partial Thromboplastin Time 48.8 SEC (24.5-34.5); Prothrombin Time 13.0 sec (9.3-11.8)
[2024-11-16] MEDS: HEPARIN DRIP/D5W 100UNITS/ML 250 ML IV SCH (08:46)
[2024-11-16 13:32] LABS: INR 1.3 (0.9-1.15); Partial Thromboplastin Time 63.3 SEC (24.5-34.5); Prothrombin Time 13.4 sec (9.3-11.8)
[2024-11-16] MEDS: WARFARIN SODIUM 5 MG TAB PO ONE (17:46)
[2024-11-16 19:58] LABS: INR 1.33 (0.9-1.15); Prothrombin Time 13.7 sec (9.3-11.8)
[2024-11-16 20:04] LABS: Partial Thromboplastin Time 74.2 SEC (24.5-34.5)
--- NOTE | 2024-11-16 23:25 | DVHPN2 ---
Progress Note - Dictate Date Seen: Nov 16, 2024 Medical Necessity Reason Pt with a Central, PICC or Fol: No Subjective Patient was seen and evaluated in follow up. Patient is complaining of RLE pain. Patient remains on Heparin drip. BS in the 200s. Telemetry reviewed. vital signs Vital Sign Date Time Temp Pulse Resp B/P (MAP) Pulse Ox O2 Delivery O2 Flow Rate FiO2 11/16/24 09:44 142/98 11/16/24 09:00 98.0 98 18 95 98.0 11/16/24 08:00 Room Air* 0 21 Total Intake and Output 11/15/24 11/15/24 11/16/24 15:00 23:00 07:00 Intake Total 230 ml 990 ml 120 ml Balance 230 ml 990 ml 120 ml medications Current Medications Medications Dose Ordered Sig/Nahun Route Start Time Stop Time Status Last Admin Dose Admin Amlodipine Besylate 5 mg DAILY PO 11/13/24 10:00 11/16/24 09:44 5 MG Atorvastatin Calcium 10 mg HS PO 11/12/24 22:00 11/15/24 21:11 10 MG Clonidine HCl 0.1 mg Q4HP PRN PO 11/12/24 10:45 Albuterol 2.5 mg Q4HPRN PRN NEB 11/12/24 10:45 Diagnostic Test (Pha) 1 strip IQ4HR 11/12/24 12:00 11/16/24 12:33 1 STRIP Insulin Human Regular IQ4HR SC 11/12/24 12:00 11/16/24 12:36 3 UNITS Dextrose 50 ml UD PRN IV 11/12/24 10:45 Sodium Chloride 1,000 ml @ 60 mls/hr [id number] IV 11/12/24 10:45 11/14/24 04:53 60 MLS/HR Ondansetron HCl 4 mg Q4HP PRN IV 11/12/24 10:45 11/12/24 15:22 4 MG Docusate Sodium 100 mg BIDPRN PRN PO 11/12/24 10:45 Acetaminophen 650 mg Q6HP PRN PO 11/12/24 10:45 Nitroglycerin 0.4 mg Q5MINP PRN SL 11/12/24 10:45 Morphine Sulfate 2 mg Q30M PRN IV 11/12/24 10:45 Warfarin Sodium RX PROTOCOL PER PHARMACY PO 11/13/24 17:00 Acetaminophen/ Hydrocodone Bitart 1 tab Q4HR PO 11/15/24 12:15 11/16/24 09:32 1 TAB Heparin Sodium/ Dextrose 250 ml @ 20 mls/hr [id number] IV 11/16/24 06:45 11/16/24 08:46 20 MLS/HR objective GENERAL: Alert and oriented x 3. No acute distress. Morbidly obese. EYES: PERRL, EOMI. Anicteric. HENT: Moist mucous membranes. LUNGS: Clear to auscultation bilaterally. CARDIOVASCULAR: Regular rate and rhythm. ABDOMEN: Soft, non-tender and non-distended. EXTREMITIES: Right lower extremity edema, non-pitting. NEUROLOGIC: No focal neurological deficits. SKIN: Warm, dry. laboratory and microbiology Laboratory Tests 11/14/24 02:48 11/13/24 05:59 Test 11/13/24 05:59 Range/Units Serum Glucose 179 H 74-106 mg/dL Problem List Right lower extremity DVT. History of bilateral PE/bilateral DVT (2017). Suboptimal medical therapy (stopped Eliquis x 1 mo ago). Rule out hypercoagulability. Hypertension. Dyslipidemia. Bei-ndwztck-wxkhmecsy diabetes mellitus. Chronic kidney disease. Liver cirrhosis. Morbid obesity. Assessment/Plan Continued all current supportive medical care. Amlodipine, Clonidine. Nitro SL. Heparin drip per pharmacy. [place] and Morphine for pain management. Additional plan as per the hospital course. Plan discussed with: Patient ARIANNA ENNIS MD Nov 16, 2024 12:50
[2024-11-17] VITALS (9 sets, daily range): BP systolic 101–139; BP diastolic 76–92; PULSE 76–97; RESP 16–21; TEMP 97.9–98.1; O2SAT 93–99
[2024-11-17 01:33] LABS: Hematocrit 35.3 % (41.0-53.0); Hemoglobin 11.9 g/dL (13.5-17.5); Mean Corpuscular Hemoglobin 29.6 pg (28.0-32.0); Mean Corpuscular Volume 87.5 fL (80.0-100.0); Nucleated Red Blood Cells % 0.1 %
[2024-11-17 01:43] LABS: Chloride 101 mmol/L (98-107); Potassium 4.2 mmol/L (3.5-5.1)
[2024-11-17 01:44] LABS: Anion Gap 8 (5-15); Calcium 9.3 mg/dL (8.7-10.4); Carbon Dioxide 26 mmol/L (20-31)
[2024-11-17 01:45] LABS: Sodium 135 mmol/L (136-145)
[2024-11-17 01:49] LABS: BUN/Creatinine Ratio 10.6 (10.0-20.0); Blood Urea Nitrogen 13 mg/dL (9-23)
[2024-11-17 01:50] LABS: Glucose 159 mg/dL (74-106)
[2024-11-17] MEDS: HEPARIN DRIP/D5W 100UNITS/ML 250 ML IV SCH (02:40)
[2024-11-17 09:12] LABS: INR 1.57 (0.9-1.15); Prothrombin Time 15.9 sec (9.3-11.8)
[2024-11-17 09:15] LABS: Partial Thromboplastin Time 70.3 SEC (24.5-34.5)
[2024-11-17 14:53] LABS: INR 1.58 (0.9-1.15); Partial Thromboplastin Time 60.6 SEC (24.5-34.5); Prothrombin Time 16.0 sec (9.3-11.8)
--- NOTE | 2024-11-17 15:21 | DVHPN2 ---
Reviewed: Care Plan, H&P, Labs, Medications, Previous Orders, Radiology Changes from previous H/P or p: No Changes General: Per HPI Eyes: No Pain, No Vision change, No Conjunctivae inflammation, No Eyelid inflammation, No Other, No Redness ENT: No Ear pain, No Ear discharge, No Nose pain, No Nose discharge, No Nose congestion, No Mouth pain, No Mouth swelling, No Throat pain, No Throat swelling, No Other Cardiovascular: No Chest Pain, No Palpitations, No Orthopnea, No Paroxysmal Noc. Dyspnea, No Edema, No Lt Headedness, No Other Respiratory: No Cough, No Dry, No Shortness of breath, No SOB with excertion, No Wheezing, No Hemoptysis, No Pleuritic Pain, No Sputum, No Other Gastrointestinal: No Nausea, No Vomiting, No Abdominal Pain, No Diarrhea, No Constipation, No Melena, No Hematochezia, No Other Genitourinary: No Dysuria, No Frequency, No Incontinence, No Hematuria, No Retention, No Other Musculoskeletal: other (3+ pitting edema, asymmetrically larger than the left.); No neck pain, No shoulder pain, No arm pain, No back pain, No hand pain, No leg pain, No foot pain Skin: No Rash, No Lesions, No Jaundice, No Bruising; Other (Mild redness, hyperpigmentation.) Objective Vitals Vital Signs Date Time Temp Pulse Resp B/P (MAP) Pulse Ox O2 Delivery O2 Flow Rate FiO2 11/17/24 13:00 98.1 85 18 136/78 (97) 94 98.1 11/17/24 08:00 Room Air* 0 21 Intake/Output Intake and Output 11/17/24 07:00 Intake Total 950 ml Balance 950 ml Intake Oral 950 ml # Voids 6 # Bowel Movements 1 General Appearance: Alert, Oriented X3, Cooperative Cardiovascular: Regular rate, Normal S1 Abdomen: Normal bowel sounds Medications Current Medications Medications Dose Ordered Sig/Nahun Route Start Time Stop Time Status Last Admin Dose Admin Amlodipine Besylate 5 mg DAILY PO 11/13/24 10:00 11/17/24 09:51 5 MG Atorvastatin Calcium 10 mg HS PO 11/12/24 22:00 11/16/24 22:05 10 MG Clonidine HCl 0.1 mg Q4HP PRN PO 11/12/24 10:45 Albuterol 2.5 mg Q4HPRN PRN NEB 11/12/24 10:45 Diagnostic Test (Pha) 1 strip IQ4HR 11/12/24 12:00 11/17/24 12:07 1 STRIP Insulin Human Regular IQ4HR SC 11/12/24 12:00 11/17/24 12:08 3 UNITS Dextrose 50 ml UD PRN IV 11/12/24 10:45 Sodium Chloride 1,000 ml @ 60 mls/hr [id number] IV 11/12/24 10:45 11/17/24 09:55 60 MLS/HR Ondansetron HCl 4 mg Q4HP PRN IV 11/12/24 10:45 11/12/24 15:22 4 MG Docusate Sodium 100 mg BIDPRN PRN PO 11/12/24 10:45 Acetaminophen 650 mg Q6HP PRN PO 11/12/24 10:45 Nitroglycerin 0.4 mg Q5MINP PRN SL 11/12/24 10:45 Morphine Sulfate 2 mg Q30M PRN IV 11/12/24 10:45 Warfarin Sodium RX PROTOCOL PER PHARMACY PO 11/13/24 17:00 Acetaminophen/ Hydrocodone Bitart 1 tab Q4HR PO 11/15/24 12:15 11/17/24 14:51 1 TAB Heparin Sodium/ Dextrose 250 ml @ 18 mls/hr [id number] IV 11/17/24 02:45 11/17/24 04:37 18 MLS/HR Laboratory Results Laboratory Tests 11/17/24 01:10 Chemistry Test 11/17/24 01:10 Calcium Level 9.3 mg/dL (8.7-10.4) Coagulation Test 11/16/24 18:52 11/17/24 01:10 11/17/24 08:22 11/17/24 14:28 Prothrombin Time 13.7 sec (9.3-11.8) H 15.9 sec (9.3-11.8) H 16.0 sec (9.3-11.8) H Prothrombin Time INR 1.33 (0.9-1.15) H 1.57 (0.9-1.15) H 1.58 (0.9-1.15) H Activated Partial Thromboplast Time 74.2 SEC (24.5-34.5) *H 83.4 SEC (24.5-34.5) *H 70.3 SEC (24.5-34.5) *H 60.6 SEC (24.5-34.5) H Labs and/or images reviewed: Labs reviewed by me, Image(s) reviewed by me Assessment/Plan Assessment/Plan Acute light lower extremity pain DVT right popliteal vein:l, cardiology consult by Dr. Guevara appreciated, placed on heparin drip and also started on Coumadin INR 1.19, Coumadin still not therapeutic Hypercoagulability state: Patient to follow up with the kiss mixer as outpatient for further workup History of PE x4 Asthma Diabetes Hypercholesterolemia Hypotension Stage III cirrhosis of liver Noncompliance: Patient has not been taking Eliquis for the last one month and he claims that his PCP did not refill the medication Time spent 50 minutes Advanced care planning time 20 minutes Patient is full code Plan discussed with: Patient My Orders Orders - ARDEN ROSSI DO Procedure Category Date Status Time Furosemide Injection PHA 11/17/24 Verified (Lasix Injection) 18:00 Date of Service: Nov 17, 2024 Billing Provider: ARDEN ROSSI DO Common Visit Codes: [id number] INP/OBS CARE(HIGH) ARDEN ROSSI DO Nov 17, 2024 15:21
--- NOTE | 2024-11-17 15:21 | DVHPN2 ---
Reviewed: Care Plan, H&P, Labs, Medications, Previous Orders, Radiology Changes from previous H/P or p: No Changes General: Per HPI Eyes: No Pain, No Vision change, No Conjunctivae inflammation, No Eyelid inflammation, No Other, No Redness ENT: No Ear pain, No Ear discharge, No Nose pain, No Nose discharge, No Nose congestion, No Mouth pain, No Mouth swelling, No Throat pain, No Throat swelling, No Other Cardiovascular: No Chest Pain, No Palpitations, No Orthopnea, No Paroxysmal Noc. Dyspnea, No Edema, No Lt Headedness, No Other Respiratory: No Cough, No Dry, No Shortness of breath, No SOB with excertion, No Wheezing, No Hemoptysis, No Pleuritic Pain, No Sputum, No Other Gastrointestinal: No Nausea, No Vomiting, No Abdominal Pain, No Diarrhea, No Constipation, No Melena, No Hematochezia, No Other Genitourinary: No Dysuria, No Frequency, No Incontinence, No Hematuria, No Retention, No Other Musculoskeletal: other (3+ pitting edema, asymmetrically larger than the left.); No neck pain, No shoulder pain, No arm pain, No back pain, No hand pain, No leg pain, No foot pain Skin: No Rash, No Lesions, No Jaundice, No Bruising; Other (Mild redness, hyperpigmentation.) Objective Vitals Vital Signs Date Time Temp Pulse Resp B/P (MAP) Pulse Ox O2 Delivery O2 Flow Rate FiO2 11/17/24 13:00 98.1 85 18 136/78 (97) 94 98.1 11/17/24 08:00 Room Air* 0 21 Intake/Output Intake and Output 11/17/24 07:00 Intake Total 950 ml Balance 950 ml Intake Oral 950 ml # Voids 6 # Bowel Movements 1 General Appearance: Alert, Oriented X3, Cooperative Cardiovascular: Regular rate, Normal S1 Abdomen: Normal bowel sounds Medications Current Medications Medications Dose Ordered Sig/Nahun Route Start Time Stop Time Status Last Admin Dose Admin Amlodipine Besylate 5 mg DAILY PO 11/13/24 10:00 11/17/24 09:51 5 MG Atorvastatin Calcium 10 mg HS PO 11/12/24 22:00 11/16/24 22:05 10 MG Clonidine HCl 0.1 mg Q4HP PRN PO 11/12/24 10:45 Albuterol 2.5 mg Q4HPRN PRN NEB 11/12/24 10:45 Diagnostic Test (Pha) 1 strip IQ4HR 11/12/24 12:00 11/17/24 12:07 1 STRIP Insulin Human Regular IQ4HR SC 11/12/24 12:00 11/17/24 12:08 3 UNITS Dextrose 50 ml UD PRN IV 11/12/24 10:45 Sodium Chloride 1,000 ml @ 60 mls/hr [id number] IV 11/12/24 10:45 11/17/24 09:55 60 MLS/HR Ondansetron HCl 4 mg Q4HP PRN IV 11/12/24 10:45 11/12/24 15:22 4 MG Docusate Sodium 100 mg BIDPRN PRN PO 11/12/24 10:45 Acetaminophen 650 mg Q6HP PRN PO 11/12/24 10:45 Nitroglycerin 0.4 mg Q5MINP PRN SL 11/12/24 10:45 Morphine Sulfate 2 mg Q30M PRN IV 11/12/24 10:45 Warfarin Sodium RX PROTOCOL PER PHARMACY PO 11/13/24 17:00 Acetaminophen/ Hydrocodone Bitart 1 tab Q4HR PO 11/15/24 12:15 11/17/24 14:51 1 TAB Heparin Sodium/ Dextrose 250 ml @ 18 mls/hr [id number] IV 11/17/24 02:45 11/17/24 04:37 18 MLS/HR Laboratory Results Laboratory Tests 11/17/24 01:10 Chemistry Test 11/17/24 01:10 Calcium Level 9.3 mg/dL (8.7-10.4) Coagulation Test 11/16/24 18:52 11/17/24 01:10 11/17/24 08:22 11/17/24 14:28 Prothrombin Time 13.7 sec (9.3-11.8) H 15.9 sec (9.3-11.8) H 16.0 sec (9.3-11.8) H Prothrombin Time INR 1.33 (0.9-1.15) H 1.57 (0.9-1.15) H 1.58 (0.9-1.15) H Activated Partial Thromboplast Time 74.2 SEC (24.5-34.5) *H 83.4 SEC (24.5-34.5) *H 70.3 SEC (24.5-34.5) *H 60.6 SEC (24.5-34.5) H Labs and/or images reviewed: Labs reviewed by me, Image(s) reviewed by me Assessment/Plan Assessment/Plan Acute light lower extremity pain DVT right popliteal vein:l, cardiology consult by Dr. Guevara appreciated, placed on heparin drip and also started on Coumadin INR 1.19, Coumadin still not therapeutic Hypercoagulability state: Patient to follow up with the first line production supervisor as outpatient for further workup History of PE x4 Asthma Diabetes Hypercholesterolemia Hypotension Stage III cirrhosis of liver Noncompliance: Patient has not been taking Eliquis for the last one month and he claims that his PCP did not refill the medication Time spent 50 minutes Advanced care planning time 20 minutes Patient is full code Plan discussed with: Patient My Orders Orders - ARDEN ROSSI DO Procedure Category Date Status Time Furosemide Injection PHA 11/17/24 Verified (Lasix Injection) 18:00 Date of Service: Nov 16, 2024 Billing Provider: ARDEN ROSSI DO Common Visit Codes: [id number] INP/OBS CARE(HIGH) ARDEN ROSSI DO Nov 17, 2024 15:21
[2024-11-17] MEDS: FUROSEMIDE 100 MG/10ML VIAL IV SCH (18:00)
[2024-11-17] MEDS: WARFARIN SODIUM 5 MG TAB PO ONE (18:22)
[2024-11-17 21:24] LABS: INR 1.55 (0.9-1.15); Partial Thromboplastin Time 60.9 SEC (24.5-34.5); Prothrombin Time 15.7 sec (9.3-11.8)
--- NOTE | 2024-11-17 23:51 | DVHPN2 ---
Progress Note - Dictate Date Seen: Nov 17, 2024 Medical Necessity Reason Pt with a Central, PICC or Fol: No Subjective Patient was seen and evaluated in follow up. Patient is complaining of RLE discomfort. Patient is continued on Heparin drip. Telemetry reviewed. vital signs Vital Sign Date Time Temp Pulse Resp B/P (MAP) Pulse Ox O2 Delivery O2 Flow Rate FiO2 11/17/24 09:51 117/76 11/17/24 09:00 98.0 81 18 93 98.0 11/17/24 08:00 Room Air* 0 21 Total Intake and Output 11/16/24 11/16/24 11/17/24 15:00 23:00 07:00 Intake Total 650 ml 300 ml Balance 650 ml 300 ml medications Current Medications Medications Dose Ordered Sig/Nahun Route Start Time Stop Time Status Last Admin Dose Admin Amlodipine Besylate 5 mg DAILY PO 11/13/24 10:00 11/17/24 09:51 5 MG Atorvastatin Calcium 10 mg HS PO 11/12/24 22:00 11/16/24 22:05 10 MG Clonidine HCl 0.1 mg Q4HP PRN PO 11/12/24 10:45 Albuterol 2.5 mg Q4HPRN PRN NEB 11/12/24 10:45 Diagnostic Test (Pha) 1 strip IQ4HR 11/12/24 12:00 11/17/24 12:07 1 STRIP Insulin Human Regular IQ4HR SC 11/12/24 12:00 11/17/24 12:08 3 UNITS Dextrose 50 ml UD PRN IV 11/12/24 10:45 Sodium Chloride 1,000 ml @ 60 mls/hr [id number] IV 11/12/24 10:45 11/17/24 09:55 60 MLS/HR Ondansetron HCl 4 mg Q4HP PRN IV 11/12/24 10:45 11/12/24 15:22 4 MG Docusate Sodium 100 mg BIDPRN PRN PO 11/12/24 10:45 Acetaminophen 650 mg Q6HP PRN PO 11/12/24 10:45 Nitroglycerin 0.4 mg Q5MINP PRN SL 11/12/24 10:45 Morphine Sulfate 2 mg Q30M PRN IV 11/12/24 10:45 Warfarin Sodium RX PROTOCOL PER PHARMACY PO 11/13/24 17:00 Acetaminophen/ Hydrocodone Bitart 1 tab Q4HR PO 11/15/24 12:15 11/17/24 09:50 1 TAB Heparin Sodium/ Dextrose 250 ml @ 18 mls/hr [id number] IV 11/17/24 02:45 11/17/24 04:37 18 MLS/HR objective GENERAL: Alert and oriented x 3. No acute distress. Morbidly obese. EYES: PERRL, EOMI. Anicteric. HENT: Moist mucous membranes. LUNGS: Clear to auscultation bilaterally. CARDIOVASCULAR: Regular rate and rhythm. ABDOMEN: Soft, non-tender and non-distended. EXTREMITIES: Right lower extremity edema, non-pitting. NEUROLOGIC: No focal neurological deficits. SKIN: Warm, dry. laboratory and microbiology Laboratory Tests 11/17/24 01:10 Test 11/17/24 01:10 Range/Units Serum Glucose 159 H 74-106 mg/dL Problem List Right lower extremity DVT. History of bilateral PE/bilateral DVT (2017). Suboptimal medical therapy (stopped Eliquis x 1 mo ago). Rule out hypercoagulability. Hypertension. Dyslipidemia. Els-ffhyyhn-qisgnorth diabetes mellitus. Chronic kidney disease. Liver cirrhosis. Morbid obesity. Assessment/Plan Continued all current supportive medical care. Amlodipine, Clonidine. Nitro SL. Heparin drip per pharmacy. [place] and Morphine for pain management. Additional plan as per the hospital course. [facility]ary Evaluation [facility] Comments[facility] Monitor PO intake, Wt, kidney function and lab values Provide DM education materal to take home Wt management upon D/C Expected Outcomes/Goals: Improved DM management, reduced body wt, delay worsening of kidney failure Plan discussed with: Patient ARIANNA ENNIS MD Nov 17, 2024 13:24
[2024-11-18] VITALS (10 sets, daily range): BP systolic 105–143; BP diastolic 78–96; PULSE 87–109; RESP 17–22; TEMP 98.1–98.8; O2SAT 92–96
[2024-11-18 02:21] LABS: INR 1.57 (0.9-1.15); Partial Thromboplastin Time 58.9 SEC (24.5-34.5); Prothrombin Time 15.9 sec (9.3-11.8)
[2024-11-18] MEDS: MORPHINE SULFATE 4 MG/ML SYR/VIAL IV PRN (14:19)
[2024-11-18] MEDS: FUROSEMIDE 100 MG/10ML VIAL IV SCH (18:29)
[2024-11-18] MEDS: WARFARIN SODIUM 2.5 MG TAB PO ONE (18:30)
--- NOTE | 2024-11-18 22:38 | DVHPN2 ---
Progress Note - Dictate Date Seen: Nov 18, 2024 Medical Necessity Reason Pt with a Central, PICC or Fol: No Subjective Patient was seen and evaluated in follow up. No overnight events. Patient is c/o RLE pain and swelling. Patient continued on heparin drip Telemetry reviewed. vital signs Vital Sign Date Time Temp Pulse Resp B/P (MAP) Pulse Ox O2 Delivery O2 Flow Rate FiO2 11/18/24 10:42 136/96 11/18/24 09:00 98.7 92 19 95 98.7 11/18/24 07:40 Room Air* 0 21 Total Intake and Output 11/17/24 11/17/24 11/18/24 15:00 23:00 07:00 Intake Total 1150 ml 2350 ml Balance 1150 ml 2350 ml medications Current Medications Medications Dose Ordered Sig/Nahun Route Start Time Stop Time Status Last Admin Dose Admin Amlodipine Besylate 5 mg DAILY PO 11/13/24 10:00 11/18/24 10:42 5 MG Atorvastatin Calcium 10 mg HS PO 11/12/24 22:00 11/17/24 21:20 10 MG Clonidine HCl 0.1 mg Q4HP PRN PO 11/12/24 10:45 Albuterol 2.5 mg Q4HPRN PRN NEB 11/12/24 10:45 Diagnostic Test (Pha) 1 strip IQ4HR 11/12/24 12:00 11/18/24 12:54 1 STRIP Insulin Human Regular IQ4HR SC 11/12/24 12:00 11/18/24 12:54 6 UNITS Dextrose 50 ml UD PRN IV 11/12/24 10:45 Sodium Chloride 1,000 ml @ 60 mls/hr [id number] IV 11/12/24 10:45 11/18/24 00:24 60 MLS/HR Ondansetron HCl 4 mg Q4HP PRN IV 11/12/24 10:45 11/12/24 15:22 4 MG Docusate Sodium 100 mg BIDPRN PRN PO 11/12/24 10:45 Acetaminophen 650 mg Q6HP PRN PO 11/12/24 10:45 Nitroglycerin 0.4 mg Q5MINP PRN SL 11/12/24 10:45 Morphine Sulfate 2 mg Q30M PRN IV 11/12/24 10:45 Warfarin Sodium RX PROTOCOL PER PHARMACY PO 11/13/24 17:00 Acetaminophen/ Hydrocodone Bitart 1 tab Q4HR PO 11/15/24 12:15 11/18/24 10:41 1 TAB Heparin Sodium/ Dextrose 250 ml @ 18 mls/hr [id number] IV 11/17/24 02:45 11/18/24 13:15 18 MLS/HR Furosemide 60 mg BIDD IV 11/17/24 18:00 11/18/24 06:25 60 MG Morphine Sulfate 4 mg Q4HPRN PRN IV 11/18/24 14:15 objective GENERAL: Alert and oriented x 3. No acute distress. Morbidly obese. EYES: PERRL, EOMI. Anicteric. HENT: Moist mucous membranes. LUNGS: Clear to auscultation bilaterally. CARDIOVASCULAR: Regular rate and rhythm. ABDOMEN: Soft, non-tender and non-distended. EXTREMITIES: Right lower extremity edema, non-pitting. NEUROLOGIC: No focal neurological deficits. SKIN: Warm, dry. laboratory and microbiology Laboratory Tests 11/17/24 01:10 Test 11/17/24 01:10 Range/Units Serum Glucose 159 H 74-106 mg/dL Problem List Right lower extremity DVT. History of bilateral PE/bilateral DVT (2017). Suboptimal medical therapy (stopped Eliquis x 1 mo ago). Rule out hypercoagulability. Hypertension. Dyslipidemia. Wbq-kjjmffh-xkjhqwldb diabetes mellitus. Chronic kidney disease. Liver cirrhosis. Morbid obesity. Assessment/Plan Continued all current supportive medical care. Amlodipine, Clonidine. Nitro SL. Heparin drip per pharmacy. Diuretics with Lasix. Morphine and [place] for pain management. Additional plan as per the hospital course. [facility] Evaluation [facility] Monitor PO intake, Wt, kidney function and lab values Provide DM education materal to take home Wt management upon D/C Expected Outcomes/Goals: Improved DM management, reduced body wt, delay worsening of kidney failure Plan discussed with: Patient ARIANNA ENNIS MD Nov 18, 2024 14:10
[2024-11-19] VITALS (9 sets, daily range): BP systolic 113–145; BP diastolic 63–79; PULSE 96–114; RESP 18–72; TEMP 97.7–98.7; O2SAT 94–99
[2024-11-19 08:11] LABS: Hematocrit 39.0 % (41.0-53.0); Hemoglobin 13.0 g/dL (13.5-17.5); Mean Corpuscular Hemoglobin 28.7 pg (28.0-32.0); Mean Corpuscular Volume 86.5 fL (80.0-100.0); Nucleated Red Blood Cells % 0.1 %
[2024-11-19 08:35] LABS: INR 1.88 (0.9-1.15); Prothrombin Time 18.7 sec (9.3-11.8)
[2024-11-19 08:37] LABS: Partial Thromboplastin Time 81.3 SEC (24.5-34.5)
--- NOTE | 2024-11-19 08:54 | CONS ---
Pharmacy Clinical Information: HEPARIN DRIP, VTE PROTOCOL @0626 APTT 81.3 - DECREASE HEPARIN DRIP RATE TO 1600 UNITS/HR NEXT APTT DRAW SCHEDULED @1445 PER RX PROTOCOL CONFIRMED AND READ BACK WITH CAYLA VILLAR PHARMACIST Nov 19, 2024 08:54
[2024-11-19] MEDS: HEPARIN DRIP/D5W 100UNITS/ML 250 ML IV SCH (08:56)
[2024-11-19 16:23] LABS: INR 1.99 (0.9-1.15); Partial Thromboplastin Time 64.3 SEC (24.5-34.5); Prothrombin Time 19.7 sec (9.3-11.8)
--- NOTE | 2024-11-19 16:29 | DVHPN2 ---
Reviewed: Care Plan, H&P, Labs, Medications, Previous Orders, Radiology Changes from previous H/P or p: No Changes General: Per HPI Eyes: No Pain, No Vision change, No Conjunctivae inflammation, No Eyelid inflammation, No Other, No Redness ENT: No Ear pain, No Ear discharge, No Nose pain, No Nose discharge, No Nose congestion, No Mouth pain, No Mouth swelling, No Throat pain, No Throat swelling, No Other Cardiovascular: No Chest Pain, No Palpitations, No Orthopnea, No Paroxysmal Noc. Dyspnea, No Edema, No Lt Headedness, No Other Respiratory: No Cough, No Dry, No Shortness of breath, No SOB with excertion, No Wheezing, No Hemoptysis, No Pleuritic Pain, No Sputum, No Other Gastrointestinal: No Nausea, No Vomiting, No Abdominal Pain, No Diarrhea, No Constipation, No Melena, No Hematochezia, No Other Genitourinary: No Dysuria, No Frequency, No Incontinence, No Hematuria, No Retention, No Other Musculoskeletal: other (3+ pitting edema, asymmetrically larger than the left.); No neck pain, No shoulder pain, No arm pain, No back pain, No hand pain, No leg pain, No foot pain Skin: No Rash, No Lesions, No Jaundice, No Bruising; Other (Mild redness, hyperpigmentation.) Objective Vitals Vital Signs Date Time Temp Pulse Resp B/P (MAP) Pulse Ox O2 Delivery O2 Flow Rate FiO2 11/19/24 16:09 93 18 132/92 11/19/24 12:26 98.1 95 98.1 11/19/24 09:42 Room Air* 0 21 Intake/Output Intake and Output 11/19/24 07:00 Intake Total 3375 ml Balance 3375 ml Intake Oral 3125 ml IV Total 250 ml # Voids 13 # Bowel Movements 2 General Appearance: Alert, Oriented X3, Cooperative Cardiovascular: Regular rate, Normal S1 Abdomen: Normal bowel sounds Medications Current Medications Medications Dose Ordered Sig/Nahun Route Start Time Stop Time Status Last Admin Dose Admin Amlodipine Besylate 5 mg DAILY PO 11/13/24 10:00 11/19/24 09:51 5 MG Atorvastatin Calcium 10 mg HS PO 11/12/24 22:00 11/18/24 21:45 10 MG Clonidine HCl 0.1 mg Q4HP PRN PO 11/12/24 10:45 Albuterol 2.5 mg Q4HPRN PRN NEB 11/12/24 10:45 Diagnostic Test (Pha) 1 strip IQ4HR 11/12/24 12:00 11/19/24 16:11 1 STRIP Insulin Human Regular IQ4HR SC 11/12/24 12:00 11/19/24 16:10 3 UNITS Dextrose 50 ml UD PRN IV 11/12/24 10:45 Sodium Chloride 1,000 ml @ 60 mls/hr [id number] IV 11/12/24 10:45 11/18/24 18:32 60 MLS/HR Ondansetron HCl 4 mg Q4HP PRN IV 11/12/24 10:45 11/12/24 15:22 4 MG Docusate Sodium 100 mg BIDPRN PRN PO 11/12/24 10:45 Acetaminophen 650 mg Q6HP PRN PO 11/12/24 10:45 Nitroglycerin 0.4 mg Q5MINP PRN SL 11/12/24 10:45 Morphine Sulfate 2 mg Q30M PRN IV 11/12/24 10:45 Warfarin Sodium RX PROTOCOL PER PHARMACY PO 11/13/24 17:00 Acetaminophen/ Hydrocodone Bitart 1 tab Q4HR PO 11/15/24 12:15 11/19/24 13:51 1 TAB Morphine Sulfate 4 mg Q4HPRN PRN IV 11/18/24 14:15 11/19/24 16:09 4 MG Furosemide 80 mg BIDD IV 11/18/24 18:00 11/19/24 05:52 80 MG Heparin Sodium/ Dextrose 250 ml @ 16 mls/hr [id number] IV 11/19/24 09:00 11/19/24 16:10 16 MLS/HR Warfarin Sodium 5 mg DAILY@17 PO 11/19/24 17:00 UNV Laboratory Results Laboratory Tests 11/17/24 01:10 11/19/24 06:26 Coagulation Test 11/19/24 06:26 11/19/24 15:10 Prothrombin Time 18.7 sec (9.3-11.8) H 19.7 sec (9.3-11.8) H Prothrombin Time INR 1.88 (0.9-1.15) H 1.99 (0.9-1.15) H Activated Partial Thromboplast Time 81.3 SEC (24.5-34.5) *H 64.3 SEC (24.5-34.5) H Assessment/Plan Assessment/Plan Acute light lower extremity pain DVT right popliteal vein:l, cardiology consult by Dr. Guevara appreciated, placed on heparin drip and also started on Coumadin INR 1.19, Coumadin still not therapeutic Hypercoagulability state: Patient to follow up with the fire extinguisher tester as outpatient for further workup History of PE x4 Asthma Diabetes Hypercholesterolemia Hypotension Stage III cirrhosis of liver Noncompliance: Patient has not been taking Eliquis for the last one month and he claims that his PCP did not refill the medication Time spent 50 minutes Advanced care planning time 20 minutes Patient is full code 11/18/24: continue with heparin drip consult to radiology for IVC filter to be placed Plan discussed with: Patient My Orders Orders - ARDEN ROSSI DO Procedure Category Date Status Time * Radiologist Consult CONS 11/19/24 Transmitted 15:02 Date of Service: Nov 18, 2024 Billing Provider: ARDEN ROSSI DO Common Visit Codes: [id number] INP/OBS CARE(HIGH) ARDEN ROSSI DO Nov 19, 2024 16:29
--- NOTE | 2024-11-19 16:29 | DVHPN2 ---
Reviewed: Care Plan, H&P, Labs, Medications, Previous Orders, Radiology Changes from previous H/P or p: No Changes General: Per HPI Eyes: No Pain, No Vision change, No Conjunctivae inflammation, No Eyelid inflammation, No Other, No Redness ENT: No Ear pain, No Ear discharge, No Nose pain, No Nose discharge, No Nose congestion, No Mouth pain, No Mouth swelling, No Throat pain, No Throat swelling, No Other Cardiovascular: No Chest Pain, No Palpitations, No Orthopnea, No Paroxysmal Noc. Dyspnea, No Edema, No Lt Headedness, No Other Respiratory: No Cough, No Dry, No Shortness of breath, No SOB with excertion, No Wheezing, No Hemoptysis, No Pleuritic Pain, No Sputum, No Other Gastrointestinal: No Nausea, No Vomiting, No Abdominal Pain, No Diarrhea, No Constipation, No Melena, No Hematochezia, No Other Genitourinary: No Dysuria, No Frequency, No Incontinence, No Hematuria, No Retention, No Other Musculoskeletal: other (3+ pitting edema, asymmetrically larger than the left.); No neck pain, No shoulder pain, No arm pain, No back pain, No hand pain, No leg pain, No foot pain Skin: No Rash, No Lesions, No Jaundice, No Bruising; Other (Mild redness, hyperpigmentation.) Objective Vitals Vital Signs Date Time Temp Pulse Resp B/P (MAP) Pulse Ox O2 Delivery O2 Flow Rate FiO2 11/19/24 16:09 93 18 132/92 11/19/24 12:26 98.1 95 98.1 11/19/24 09:42 Room Air* 0 21 Intake/Output Intake and Output 11/19/24 07:00 Intake Total 3375 ml Balance 3375 ml Intake Oral 3125 ml IV Total 250 ml # Voids 13 # Bowel Movements 2 General Appearance: Alert, Oriented X3, Cooperative Cardiovascular: Regular rate, Normal S1 Abdomen: Normal bowel sounds Medications Current Medications Medications Dose Ordered Sig/Nahun Route Start Time Stop Time Status Last Admin Dose Admin Amlodipine Besylate 5 mg DAILY PO 11/13/24 10:00 11/19/24 09:51 5 MG Atorvastatin Calcium 10 mg HS PO 11/12/24 22:00 11/18/24 21:45 10 MG Clonidine HCl 0.1 mg Q4HP PRN PO 11/12/24 10:45 Albuterol 2.5 mg Q4HPRN PRN NEB 11/12/24 10:45 Diagnostic Test (Pha) 1 strip IQ4HR 11/12/24 12:00 11/19/24 16:11 1 STRIP Insulin Human Regular IQ4HR SC 11/12/24 12:00 11/19/24 16:10 3 UNITS Dextrose 50 ml UD PRN IV 11/12/24 10:45 Sodium Chloride 1,000 ml @ 60 mls/hr [id number] IV 11/12/24 10:45 11/18/24 18:32 60 MLS/HR Ondansetron HCl 4 mg Q4HP PRN IV 11/12/24 10:45 11/12/24 15:22 4 MG Docusate Sodium 100 mg BIDPRN PRN PO 11/12/24 10:45 Acetaminophen 650 mg Q6HP PRN PO 11/12/24 10:45 Nitroglycerin 0.4 mg Q5MINP PRN SL 11/12/24 10:45 Morphine Sulfate 2 mg Q30M PRN IV 11/12/24 10:45 Warfarin Sodium RX PROTOCOL PER PHARMACY PO 11/13/24 17:00 Acetaminophen/ Hydrocodone Bitart 1 tab Q4HR PO 11/15/24 12:15 11/19/24 13:51 1 TAB Morphine Sulfate 4 mg Q4HPRN PRN IV 11/18/24 14:15 11/19/24 16:09 4 MG Furosemide 80 mg BIDD IV 11/18/24 18:00 11/19/24 05:52 80 MG Heparin Sodium/ Dextrose 250 ml @ 16 mls/hr [id number] IV 11/19/24 09:00 11/19/24 16:10 16 MLS/HR Warfarin Sodium 5 mg DAILY@17 PO 11/19/24 17:00 UNV Laboratory Results Laboratory Tests 11/17/24 01:10 11/19/24 06:26 Coagulation Test 11/19/24 06:26 11/19/24 15:10 Prothrombin Time 18.7 sec (9.3-11.8) H 19.7 sec (9.3-11.8) H Prothrombin Time INR 1.88 (0.9-1.15) H 1.99 (0.9-1.15) H Activated Partial Thromboplast Time 81.3 SEC (24.5-34.5) *H 64.3 SEC (24.5-34.5) H Assessment/Plan Assessment/Plan Acute light lower extremity pain DVT right popliteal vein:l, cardiology consult by Dr. Guevara appreciated, placed on heparin drip and also started on Coumadin INR 1.19, Coumadin still not therapeutic Hypercoagulability state: Patient to follow up with the ergonomic specialist as outpatient for further workup History of PE x4 Asthma Diabetes Hypercholesterolemia Hypotension Stage III cirrhosis of liver Noncompliance: Patient has not been taking Eliquis for the last one month and he claims that his PCP did not refill the medication Time spent 50 minutes Advanced care planning time 20 minutes Patient is full code 11/18/24: continue with heparin drip consult to radiology for IVC filter to be placed 11/20/2024 consult cardiology for clot removal radiology for ivc filter also ordering an arterial doppler/ct due to worsening pain in right lower leg, ruling out arterial thrombosis Plan discussed with: Patient My Orders Orders - ARDEN ROSSI DO Procedure Category Date Status Time * Radiologist Consult CONS 11/19/24 Transmitted 15:02 Date of Service: Nov 19, 2024 Billing Provider: ARDEN ROSSI DO Common Visit Codes: [id number] INP/OBS CARE(HIGH) ARDEN ROSSI DO Nov 19, 2024 16:29
--- NOTE | 2024-11-19 16:41 | CONS ---
Pharmacy Clinical Information: HEPARIN DRIP, VTE PROTOCOL @1510 APTT 64.3 - NO BOLUS / NO CHANGE NEXT APTT DRAW SCHEDULED @2100 PER RX PROTOCOL CONFIRMED AND READ BACK WITH RN ROCKY [facility] RESIDENT Nov 19, 2024 16:41
[2024-11-19] MEDS ORDERED: WARFARIN SODIUM 5 MG TAB PO SCH (17:00)
[2024-11-19] MEDS ORDERED: WARFARIN SODIUM 2.5 MG TAB PO ONE (17:00)
[2024-11-19] MEDS: WARFARIN SODIUM 5 MG TAB PO ONE (17:46)
[2024-11-19] MEDS: ACETAMINOPHEN 325 MG TAB PO PRN (20:21)
--- NOTE | 2024-11-19 20:54 | DVH ---
RIGHT Lower Extremity Arterial Duplex Date: 11/19/2024 05:03 PM Clinical History: worsening pain Comparison: None Technique: Duplex Doppler evaluation including color Doppler and spectral/pulsed waveform analysis of the RIGHT lower extremity arteries was performed. Finding: RIGHT: Peak systolic velocities are as follows: ENERGY RATER 125 cm/s TRIPHASIC WAVEFORM Deep femoral 153 cm/s TRIPHASIC WAVEFORM SFA proximal 77 cm/s TRIPHASIC WAVEFORM SFA mid-portion 77 cm/s TRIPHASIC WAVEFORM SFA distal 109 cm/s TRIPHASIC WAVEFORM Popliteal 82 cm/s TRIPHASIC WAVEFORM Posterior tibial 77 cm/s TRIPHASIC WAVEFORM Dorsalis pedis 77 cm/s TRIPHASIC WAVEFORM The waveforms are TRIPHASIC WAVEFORM THROUGHOUT. REFERENCE VALUES, [facility] ([facility]) vascular Imaging Lab Criteria: Peak systolic velocity ranges (in cm/sec) are as follows: <150 cm/s - <20 % stenosis 150-200 cm/s - 20-49% stenosis 200-300 cm/s - 50-75% stenosis >300 cm/s -> 75% stenosis IMPRESSION: 1. There is no evidence for peripheral vascular insufficiency in the right lower extremity. 2. No significant focal stenosis is identified.
--- NOTE | 2024-11-19 22:47 | DVHPN2 ---
Progress Note - Dictate Date Seen: Nov 19, 2024 Medical Necessity Reason Pt with a Central, PICC or Fol: No Subjective Patient was seen and evaluated in follow up. Patient is complaining of right calf pain. BS elevated in the 200s. RLE Arterial US shows no evidence for peripheral vascular insufficiency in the right lower extremity. No significant focal stenosis is identified. Patient remains on heparin drip. Telemetry reviewed. vital signs Vital Sign Date Time Temp Pulse Resp B/P (MAP) Pulse Ox O2 Delivery O2 Flow Rate FiO2 11/19/24 21:00 110 16 124/86 11/19/24 20:00 Room Air* 0 21 11/19/24 17:00 98.7 94 98.7 Total Intake and Output 11/18/24 11/18/24 11/19/24 15:00 23:00 07:00 Intake Total 625 ml 2750 ml Balance 625 ml 2750 ml medications Current Medications Medications Dose Ordered Sig/Nahun Route Start Time Stop Time Status Last Admin Dose Admin Amlodipine Besylate 5 mg DAILY PO 11/13/24 10:00 11/19/24 09:51 5 MG Atorvastatin Calcium 10 mg HS PO 11/12/24 22:00 11/19/24 21:58 10 MG Clonidine HCl 0.1 mg Q4HP PRN PO 11/12/24 10:45 Albuterol 2.5 mg Q4HPRN PRN NEB 11/12/24 10:45 Diagnostic Test (Pha) 1 strip IQ4HR 11/12/24 12:00 11/19/24 20:28 1 STRIP Insulin Human Regular IQ4HR SC 11/12/24 12:00 11/19/24 20:29 6 UNITS Dextrose 50 ml UD PRN IV 11/12/24 10:45 Ondansetron HCl 4 mg Q4HP PRN IV 11/12/24 10:45 11/12/24 15:22 4 MG Docusate Sodium 100 mg BIDPRN PRN PO 11/12/24 10:45 Acetaminophen 650 mg Q6HP PRN PO 11/12/24 10:45 11/19/24 20:21 650 MG Nitroglycerin 0.4 mg Q5MINP PRN SL 11/12/24 10:45 Morphine Sulfate 2 mg Q30M PRN IV 11/12/24 10:45 Warfarin Sodium RX PROTOCOL PER PHARMACY PO 11/13/24 17:00 Acetaminophen/ Hydrocodone Bitart 1 tab Q4HR PO 11/15/24 12:15 11/19/24 22:00 1 TAB Morphine Sulfate 4 mg Q4HPRN PRN IV 11/18/24 14:15 11/19/24 20:20 4 MG Furosemide 80 mg BIDD IV 11/18/24 18:00 11/19/24 17:47 80 MG Heparin Sodium/ Dextrose 250 ml @ 16 mls/hr [id number] IV 11/19/24 09:00 11/19/24 16:10 16 MLS/HR Warfarin Sodium 5 mg DAILY@17 PO 11/19/24 17:00 UNV objective GENERAL: Alert and oriented x 3. No acute distress. Morbidly obese. EYES: PERRL, EOMI. Anicteric. HENT: Moist mucous membranes. LUNGS: Clear to auscultation bilaterally. CARDIOVASCULAR: Regular rate and rhythm. ABDOMEN: Soft, non-tender and non-distended. EXTREMITIES: Right lower extremity edema, non-pitting. NEUROLOGIC: No focal neurological deficits. SKIN: Warm, dry. laboratory and microbiology Laboratory Tests 11/19/24 06:26 11/17/24 01:10 Test 11/17/24 01:10 Range/Units Serum Glucose 159 H 74-106 mg/dL Problem List Right lower extremity DVT. History of bilateral PE/bilateral DVT (2017). Suboptimal medical therapy (stopped Eliquis x 1 mo ago). Rule out hypercoagulability. Hypertension. Dyslipidemia. Tem-yuneajy-zxpjevppr diabetes mellitus. Chronic kidney disease. Liver cirrhosis. Morbid obesity. Assessment/Plan Continued all current supportive medical care. Morphine and [place] for pain management. Amlodipine, Clonidine. Lipitor. Nitro SL. Heparin drip per pharmacy. Diuretics with Lasix. Additional plan as per the hospital course. Dietary Evaluation Review Comments: CCHO-75 2GNA diet Monitor PO intake, Wt, kidney function and lab values Provide DM education materal to take home Wt management upon D/C Expected Outcomes/Goals: Improved DM management, reduced body wt, delay worsening of kidney failure Plan discussed with: Patient ARIANNA ENNIS MD Nov 19, 2024 22:47
[2024-11-19 23:17] LABS: INR 2.02 (0.9-1.15); Partial Thromboplastin Time 54.7 SEC (24.5-34.5); Prothrombin Time 20.0 sec (9.3-11.8)
[2024-11-20] VITALS (11 sets, daily range): BP systolic 97–127; BP diastolic 61–89; PULSE 82–105; RESP 13–21; TEMP 36.7; O2SAT 94–98
[2024-11-20 06:45] LABS: Hematocrit 35.6 % (41.0-53.0); Hemoglobin 12.3 g/dL (13.5-17.5); Mean Corpuscular Hemoglobin 29.5 pg (28.0-32.0); Mean Corpuscular Volume 85.2 fL (80.0-100.0); Nucleated Red Blood Cells % 0.3 %
[2024-11-20 07:16] LABS: INR 2.1 (0.9-1.15); Prothrombin Time 20.7 sec (9.3-11.8)
[2024-11-20 07:20] LABS: Partial Thromboplastin Time 72.4 SEC (24.5-34.5)
[2024-11-20 09:50] LABS: Urine Protein, UAD Negative (Negative)
[2024-11-20] MEDS: IODIXANOL 320MG/ML 100ML BTL IV ONE (10:19)
[2024-11-20] MEDS: fentaNYL CITRATE 100 MCG/2 ML VL ONE (10:20)
[2024-11-20] MEDS: MIDAZOLAM HCL 2MG/2ML 2ml VIAL (1mg/ml) ONE (10:21)
[2024-11-20] MEDS: LIDOCAINE 2%HCL (LOCAL ANESTH.) INJ 20ML MDV ONE (10:21)
[2024-11-20] MEDS: HEPARIN SODIUM (PORCINE) 5000 UNITS/ML 1ML VIAL ONE (10:21)
--- NOTE | 2024-11-20 11:43 | DVH ---
XY INFERIOR VENA CAVA FILTER, HISTORY: FILTER PL due to history of PE x4, current right popliteal vein DVT, and inability to mainta in therapeutic anticoagulation. PROCEDURE: Informed consent was obtained. The patient was placed on the fluoroscopic table in supine position. The right groin was prepped with chlorhexidine which was allowed to dry and draped in the u sual sterile fashion. Time out was performed. Following administration of 1% local lidocaine, the gre ater saphenous vein was accessed with a micropuncture set under ultrasound guidance, and an image doc umenting patency sent to PACS. A 6 [place] sheath was placed into the right iliac vein. A cavogram was performed and the level of the renal veins were identified. The catheter was exchanged for a 9.6 [facility] introducer sheath, and a Bard G2 Yina IVC filter was deployed in an infrarenal location. The in troducer sheath was removed and the venotomy closed with manual compression. Post-deployment image wa s obtained. No immediate complication was identified. DAP 1555 FLUOROSCOPY TIME: 1.6 minutes. CONTRAST USED: 15 mL. SEDATION: Dr. Dorene Pelaez was personally responsible for the administration of moderate sedation during the procedure performed, including the use of an independent trained observer who had no other duties during the procedure. The drugs utilized were IV fentanyl and versed (see nursing log for details). The total time of supervision by the attending physician was approximately 30 minutes. FINDINGS: There is a patent single IVC visualized without intraluminal filling defect. No renal venou s anomaly is noted. Post-procedure image demonstrates good positioning of the IVC filter in an infrar enal position. IMPRESSION: Successful IVC filter placement at the infra-renal location. PLAN: Consideration should be made for removal of this retrievable filter after and if medical necess ity for caval filtration is no longer present. If we in IR are unable to contact the patient in a lana cathy fashion, please contact our office, and we will attempt to arrange for filter retrieval at the ea rliest convenience.
--- NOTE | 2024-11-20 14:32 | DVHPN2 ---
Progress Note - Dictate Date Seen: Nov 20, 2024 Medical Necessity Reason Pt with a Central, PICC or Fol: No Subjective Patient was seen and evaluated in follow up. No overnight events. Patient is complaining of right calf pain. Patient underwent successful IVC filter placement at the infra-renal location. BS elevated in the 200s. Patient remains on heparin drip. Telemetry reviewed. vital signs Vital Sign Date Time Temp Pulse Resp B/P (MAP) Pulse Ox O2 Delivery O2 Flow Rate FiO2 11/20/24 12:30 92 17 111/79 11/20/24 12:20 97 11/20/24 08:30 98.0 98.0 11/20/24 07:30 Room Air* 0 21 Total Intake and Output 11/19/24 11/19/24 11/20/24 15:00 23:00 07:00 Intake Total 2710 ml 1000 ml Balance 2710 ml 1000 ml medications Current Medications Medications Dose Ordered Sig/Nahun Route Start Time Stop Time Status Last Admin Dose Admin Amlodipine Besylate 5 mg DAILY PO 11/13/24 10:00 11/19/24 09:51 5 MG Atorvastatin Calcium 10 mg HS PO 11/12/24 22:00 11/19/24 21:58 10 MG Clonidine HCl 0.1 mg Q4HP PRN PO 11/12/24 10:45 Albuterol 2.5 mg Q4HPRN PRN NEB 11/12/24 10:45 Cancel Diagnostic Test (Pha) 1 strip IQ4HR 11/12/24 12:00 11/20/24 13:10 1 STRIP Insulin Human Regular IQ4HR SC 11/12/24 12:00 11/20/24 13:09 6 UNITS Dextrose 50 ml UD PRN IV 11/12/24 10:45 Ondansetron HCl 4 mg Q4HP PRN IV 11/12/24 10:45 11/12/24 15:22 4 MG Docusate Sodium 100 mg BIDPRN PRN PO 11/12/24 10:45 Acetaminophen 650 mg Q6HP PRN PO 11/12/24 10:45 11/19/24 20:21 650 MG Nitroglycerin 0.4 mg Q5MINP PRN SL 11/12/24 10:45 Morphine Sulfate 2 mg Q30M PRN IV 11/12/24 10:45 Warfarin Sodium RX PROTOCOL PER PHARMACY PO 11/13/24 17:00 Acetaminophen/ Hydrocodone Bitart 1 tab Q4HR PO 11/15/24 12:15 11/20/24 13:08 1 TAB Morphine Sulfate 4 mg Q4HPRN PRN IV 11/18/24 14:15 11/20/24 11:59 4 MG Furosemide 80 mg BIDD IV 11/18/24 18:00 11/20/24 06:13 80 MG Heparin Sodium/ Dextrose 250 ml @ 16 mls/hr [id number] IV 11/19/24 09:00 11/20/24 09:28 16 MLS/HR Warfarin Sodium 5 mg DAILY@17 PO 11/19/24 17:00 UNV objective GENERAL: Alert and oriented x 3. No acute distress. Morbidly obese. EYES: PERRL, EOMI. Anicteric. HENT: Moist mucous membranes. LUNGS: Clear to auscultation bilaterally. CARDIOVASCULAR: Regular rate and rhythm. ABDOMEN: Soft, non-tender and non-distended. EXTREMITIES: Right lower extremity edema, non-pitting. NEUROLOGIC: No focal neurological deficits. SKIN: Warm, dry. laboratory and microbiology Laboratory Tests 11/20/24 06:11 11/17/24 01:10 Test 11/17/24 01:10 Range/Units Serum Glucose 159 H 74-106 mg/dL Problem List Right lower extremity DVT. History of bilateral PE/bilateral DVT (2017). Suboptimal medical therapy (stopped Eliquis x 1 mo ago). Rule out hypercoagulability. Hypertension. Dyslipidemia. Tjd-pvcqvqx-tpmtdqcys diabetes mellitus. Chronic kidney disease. Liver cirrhosis. Morbid obesity. Assessment/Plan Continued all current supportive medical care. Morphine and [place] for pain management. Amlodipine, Clonidine. Lipitor. Diuretics with Lasix. Heparin drip per pharmacy. Nitro SL. Additional plan as per the hospital course. Dietary Evaluation Review Comments: CCHO-75 2GNA diet Monitor PO intake, Wt, kidney function and lab values Provide DM education materal to take home Wt management upon D/C Expected Outcomes/Goals: Improved DM management, reduced body wt, delay worsening of kidney failure Plan discussed with: Patient ARIANNA ENNIS MD Nov 20, 2024 14:32
[2024-11-20 14:35] LABS: INR 2.0 (0.9-1.15); Partial Thromboplastin Time 55.5 SEC (24.5-34.5); Prothrombin Time 19.8 sec (9.3-11.8)
[2024-11-20] MEDS ORDERED: WARF-66 PO (14:57)
[2024-11-20] MEDS ORDERED: WARF-111 PO (14:57)
[2024-11-20] MEDS ORDERED: FURO1TAB31 PO (14:58)
--- NOTE | 2024-11-20 14:59 | DVHDS2 ---
Discharge Summary Date of Admission Nov 12, 2024 at 10:33 Date of Discharge: Nov 20, 2024 Labs/Diagnostic Data: Laboratory Results Test 11/20/24 13:53 11/20/24 13:01 11/20/24 09:30 11/20/24 06:11 Prothrombin Time 19.8 sec (9.3-11.8) Prothrombin Time INR 2.00 (0.9-1.15) Activated Partial Thromboplast Time 55.5 SEC (24.5-34.5) POC Glucose 201 mg/dl (70-106) Urine Color Light-yellow (Yellow) Urine Clarity Clear (Clear) Urine pH 6.5 (5.0-9.0) Urine Specific Chauncey 1.009 (1.001-1.035) Urine Protein Negative (Negative) Urine Ketones Negative (Negative) Urine Blood Negative /uL (Negative) Urine Nitrite Negative (Negative) Urine Bilirubin Negative (Negative) Urine Urobilinogen Normal mg/dL (Negative) Urine Leukocyte Esterase Negative /uL (Negative) Urine RBC <1 /hpf (0 - 3) Urine Microscopic WBC < 1 /HPF (0-3) Urine Squamous Epithelial Cells None seen /hpf (<5) Urine Bacteria None seen /hpf (None Seen) Urine Hyaline Casts Few /lpf (0 - 2) Urine Glucose Normal mg/dL (Normal) White Blood Count 6.5 10^3/uL (4.4-10.8) Red Blood Count 4.18 10^6/uL (4.5-5.90) Hemoglobin 12.3 g/dL (13.5-17.5) Hematocrit 35.6 % (41.0-53.0) Mean Corpuscular Volume 85.2 fL (80.0-100.0) Mean Corpuscular Hemoglobin 29.5 pg (28.0-32.0) Mean Corpuscular Hemoglobin Concent 34.6 g/dL (32.0-36.0) Red Cell Distribution Width 16.1 % (11.8-14.3) Platelet Count 200 10^3/uL (140-450) Mean Platelet Volume 7.8 fL (6.9-10.8) Neutrophils (%) (Auto) 61.3 % (37.0-80.0) Lymphocytes (%) (Auto) 21.9 % (10.0-50.0) Monocytes (%) (Auto) 15.6 % (0.0-12.0) Eosinophils (%) (Auto) 0.8 % (0.0-7.0) Basophils (%) (Auto) 0.4 % (0.0-2.0) Neutrophils # (Auto) 4.0 10 ^3/uL (1.6-8.6) Lymphocytes # (Auto) 1.4 10 ^3/uL (0.4-5.4) Monocytes # (Auto) 1.0 10 ^3/uL (0-1.3) Eosinophils # (Auto) 0.1 10 ^3/uL (0-0.8) Basophils # (Auto) 0 10 ^3/uL (0-0.2) Nucleated Red Blood Cells 0.3 % Test 11/17/24 01:10 11/13/24 05:59 11/12/24 08:22 Sodium Level 135 mmol/L (136-145) Potassium Level 4.2 mmol/L (3.5-5.1) Chloride Level 101 mmol/L (98-107) Carbon Dioxide Level 26 mmol/L (20-31) Anion Gap 8 (5-15) Blood Urea Nitrogen 13 mg/dL (9-23) Creatinine 1.23 mg/dL (0.700-1.30) Glomerular Filtration Rate Calc 72 mL/min (>90) BUN/Creatinine Ratio 10.6 (10.0-20.0) Serum Glucose 159 mg/dL (74-106) Calcium Level 9.3 mg/dL (8.7-10.4) Total Bilirubin 0.4 mg/dL (0.2-1.0) Aspartate Amino Transferase (AST) 77 U/L (13-40) Alanine Aminotransferase (ALT) 96 U/L (7-40) Alkaline Phosphatase 88 U/L (46-116) Total Protein 6.1 g/dL (5.7-8.2) Albumin 4.0 g/dL (3.2-4.8) Hepatitis B Surface Antigen Negative (Negative) Other Laboratory Tests 11/20/24 06:11 11/17/24 01:10 Brief Hx & Hospital Course: Acute light lower extremity pain DVT right popliteal vein:l, cardiology consult by Dr. Guevara appreciated, placed on heparin drip and also started on Coumadin INR 1.19, Coumadin still not therapeutic Hypercoagulability state: Patient to follow up with the employee relations assistant as outpatient for further workup History of PE x4 Asthma Diabetes Hypercholesterolemia Hypotension Stage III cirrhosis of liver Noncompliance: Patient has not been taking Eliquis for the last one month and he claims that his PCP did not refill the medication Time spent 50 minutes Advanced care planning time 20 minutes Patient is full code 11/18/24: continue with heparin drip consult to radiology for IVC filter to be placed 11/20/2024 consult cardiology for clot removal radiology for ivc filter also ordering an arterial doppler/ct due to worsening pain in right lower leg, ruling out arterial thrombosis discharged to home Condition at Discharge: Fair Final Diagnosis/Problems List see above Discharge Disposition: Home Discharge Instruct/Medications Diet: Cardiac 2g Na,low cholest Activity: No Restrictions, As Tolerated Scheduled Amlodipine Besylate (Norvasc Tablet), 5 MG PO DAILY Atorvastatin Calcium (Atorvastatin Calcium), 1 TAB PO DAILY, (Reported) Atorvastatin Calcium (Atorvastatin Calcium), 10 MG PO DAILY Baclofen (Baclofen), 1 TAB PO TID Clindamycin Hcl (Clindamycin Hcl), 1 CAP PO TID Dexamethasone (Decadron), 8 MG PO DAILY Doxycycline Hyclate (Doxycycline Hyclate), 1 TAB PO BID Furosemide (Lasix), 40 MG PO EOD Ibuprofen (Ibuprofen), 1 TAB PO TID Lisinopril (Lisinopril), 20 MG PO DAILY Metformin Hydrochloride (Metformin Hcl), 1 TAB PO BID, (Reported) Methylprednisolone (Medrol Dosepak), 4 MG PO UD Metoprolol Succinate (Toprol Xl), 1 TAB PO DAILY, (Reported) Spironolactone (Spironolactone), 1 TAB PO DAILY, (Reported) Warfarin Sodium (Warfarin Sodium), 1 TAB PO DAILY Warfarin Sodium (Warfarin Sodium), 1 TAB PO DAILY Scheduled PRN Albuterol Sulfate (Ventolin Mdi), 180 MCG IN Q6HP PRN Hydrocodone-Acetaminophen (Hydrocodone Bitartrate/AC 5-325 mg), 1 TAB PO Q6HP PRN Miscellaneous Medications Chlorpromazine Hcl (Chlorpromazine Hcl), 100 MG PO, (Reported) Semaglutide (Rybelsus), 3 MG PO, (Reported) Semaglutide (Ozempic), 2 MG SC, (Reported) Discontinued Medications Apixaban Base (Eliquis), 2.5 MG PO BID, (Reported) Discharge Statement: "Patient was advised to return to the ER or call 911 if any headaches, dizziness, shortness of breath, chest pain, abdominal pain, bleeding, fevers, or worsening of medical condition. Patient was counseled about treatment plan, medications, possible side effects, patientverbalized understanding. All questions were answered to the best of my ability. This discharge took greater then 30 minutes in planning, reviewing documentation, counseling the patient, and discussing with other team members." ASSESSMENT ASSESSMENT Assessment Date of Service: Nov 20, 2024 Billing Provider: ARDEN ROSSI DO Common Visit Codes: 33016-QEK/[id number] DISCH DAY >30min ARDEN ROSSI DO Nov 20, 2024 14:59
--- NOTE | 2024-11-20 15:10 | CONS ---
Pharmacy Clinical Information: HEPARIN DRIP, VTE PROTOCOL @1353 APTT 55.5 - NO BOLUS / NO CHANGE NEXT APTT DRAW SCHEDULED 11/21/24 @0500 PER RX PROTOCOL CONFIRMED AND READ BACK WITH ROBERT RENEE PLEASE OVERLAP IV HEPARIN WITH WARFARIN FOR AT LEAST 2 MEASUREMENTS TAKEN 24 HOURS APART. CAYLA LOZANO PHARMACIST Nov 20, 2024 15:10
--- NOTE | 2024-11-20 15:18 | DVHPN2 ---
Progress Note - Dictate Date Seen: Nov 20, 2024 Medical Necessity Reason Pt with a Central, PICC or Fol: No Subjective PT WITH NON OCCLUSIVE POPLITEAL DVT SECONDARY TO NON COMPLIANCE HYPERCOAGULABLE STATE NO INTERVENTION FOR POPLITEAL THROMBUS vital signs Vital Sign Date Time Temp Pulse Resp B/P (MAP) Pulse Ox O2 Delivery O2 Flow Rate FiO2 11/20/24 13:30 98.1 95 19 97/65 (76) 97 98.1 11/20/24 07:30 Room Air* 0 21 Total Intake and Output 11/19/24 11/19/24 11/20/24 15:00 23:00 07:00 Intake Total 2710 ml 1000 ml Balance 2710 ml 1000 ml medications Current Medications Medications Dose Ordered Sig/Nahun Route Start Time Stop Time Status Last Admin Dose Admin Amlodipine Besylate 5 mg DAILY PO 11/13/24 10:00 11/19/24 09:51 5 MG Atorvastatin Calcium 10 mg HS PO 11/12/24 22:00 11/19/24 21:58 10 MG Clonidine HCl 0.1 mg Q4HP PRN PO 11/12/24 10:45 Albuterol 2.5 mg Q4HPRN PRN NEB 11/12/24 10:45 Cancel Diagnostic Test (Pha) 1 strip IQ4HR 11/12/24 12:00 11/20/24 13:10 1 STRIP Insulin Human Regular IQ4HR SC 11/12/24 12:00 11/20/24 13:09 6 UNITS Dextrose 50 ml UD PRN IV 11/12/24 10:45 Ondansetron HCl 4 mg Q4HP PRN IV 11/12/24 10:45 11/12/24 15:22 4 MG Docusate Sodium 100 mg BIDPRN PRN PO 11/12/24 10:45 Acetaminophen 650 mg Q6HP PRN PO 11/12/24 10:45 11/19/24 20:21 650 MG Nitroglycerin 0.4 mg Q5MINP PRN SL 11/12/24 10:45 Morphine Sulfate 2 mg Q30M PRN IV 11/12/24 10:45 Warfarin Sodium RX PROTOCOL PER PHARMACY PO 11/13/24 17:00 Acetaminophen/ Hydrocodone Bitart 1 tab Q4HR PO 11/15/24 12:15 11/20/24 13:08 1 TAB Morphine Sulfate 4 mg Q4HPRN PRN IV 11/18/24 14:15 11/20/24 11:59 4 MG Furosemide 80 mg BIDD IV 11/18/24 18:00 11/20/24 06:13 80 MG Heparin Sodium/ Dextrose 250 ml @ 16 mls/hr [id number] IV 11/19/24 09:00 11/20/24 09:28 16 MLS/HR Warfarin Sodium 5 mg DAILY@17 PO 11/19/24 17:00 UNV laboratory and microbiology Laboratory Tests 11/20/24 06:11 11/17/24 01:10 Test 11/17/24 01:10 Range/Units Serum Glucose 159 H 74-106 mg/dL Problem List NON OCCLUSIVE POPLITEAL DVT SECONDARY TO NON COMPLIANCE HYPERCOAGULABLE STATE NO INTERVENTION FOR POPLITEAL THROMBUS Assessment/Plan ANTI COAGULATED NOT CLEAR FOR PLACEMENT OF IVC FILTER FOR POPLITEAL THROMBUS ESPECIALLY FOR NON COMPLIANCE OF ANTICOAGULANT HIGH RISK FOR COLLUSION OF IVC WITH FILTER WILL SIGN OFF Dietary Evaluation Review Comments: CCHO-75 2GNA diet Monitor PO intake, Wt, kidney function and lab values Provide DM education materal to take home Wt management upon D/C Expected Outcomes/Goals: Improved DM management, reduced body wt, delay worsening of kidney failure Plan discussed with: Patient GARY CARRILLO MD Nov 20, 2024 15:18
[2024-11-20] MEDS ORDERED: WARFARIN SODIUM 2.5 MG TAB PO ONE (17:00)
[2024-11-20] MEDS ORDERED: WARFARIN SODIUM 5 MG TAB PO ONE (17:00)
== END 2024-11-20 16:00 | disposition home or self-care (01) | DRG 197 ==
LOC: ER 07:46 → OVERFLOW 10:33 → TELE-EAST 21:20
PROVIDERS: ADMIT Internal Medicine; ATTEND Internal Medicine
PROC: 06H03DZ Insertion of Intraluminal Device into Inferior Vena Cava, Percutaneous Approach (ICD-10-PCS; principal; 2024-11-20)
PROC: B549ZZA Ultrasonography of Inferior Vena Cava, Guidance (ICD-10-PCS; 2024-11-20)
PROC: B519YZA Fluoroscopy of Inferior Vena Cava using Other Contrast, Guidance (ICD-10-PCS; 2024-11-20)
DX: I82.431 Acute embolism and thrombosis of right popliteal vein (principal); D68.59 Other primary thrombophilia; E11.22 Type 2 diabetes mellitus with diabetic chronic kidney disease; K74.60 Unspecified cirrhosis of liver; I95.9 Hypotension, unspecified; J45.909 Unspecified asthma, uncomplicated; E11.65 Type 2 diabetes mellitus with hyperglycemia; E78.00 Pure hypercholesterolemia, unspecified; E66.01 Morbid (severe) obesity due to excess calories; N18.9 Chronic kidney disease, unspecified; Z68.42 Body mass index [BMI] 45.0-49.9, adult; I12.9 Hypertensive chronic kidney disease with stage 1 through stage 4 chronic kidney disease, or unspecified chronic kidney disease; Z79.01 Long term (current) use of anticoagulants; Z79.84 Long term (current) use of oral hypoglycemic drugs; Z83.3 Family history of diabetes mellitus; Z86.711 Personal history of pulmonary embolism; Z87.891 Personal history of nicotine dependence; Z88.2 Allergy status to sulfonamides; Z90.49 Acquired absence of other specified parts of digestive tract; Z91.199 Patient's noncompliance with other medical treatment and regimen due to unspecified reason
CPT/HCPCS: 36415; 37619; 80048; 80053; 81001; 82962; 85025; 85610; 85730; 86850; 86900; 86901; 87340; 93926; 93971; 96361; 96374; 96375; 99152; G0378; J1815; J2250; J2405; Q9967